=== PATIENT | female | born 1960 | race Caucasian/White ===

== ENCOUNTER 2016-12-16 01:17 | Inpatient (IN) ==
--- NOTE | 2016-12-16 01:37 | Emergency Department Note ---
Disposition Clinical Impression: NSTEMI (non-ST elevated myocardial infarction) Chest pain Qualifiers: Chest pain type: unspecified Qualified Code(s): R07.9 - Chest pain, unspecified Disposition: Admitted As Inpatient Condition: Good Time of Disposition: 03:33 Chest Pain HPI - General Chief Complaint: ED Chest Pain Stated Complaint: Chest Pain Time Seen by Provider: 12/16/16 01:24 Source: patient, EMS Mode of arrival: EMS Limitations: no limitations Vital Signs Reviewed: Yes Nursing Notes Reviewed: Yes - History of Present Illness HPI Narrative: 56-year-old female history of hypertension, diabetes, hyperlipidemia, pack per day smoker, with pacemaker presents to the ED via EMS for chest pain. States she woke up from sleep with severe midsternal chest pain 10 of 10 around 2330. She initially felt short of breath, nauseated and vomited once. Pain did not radiate. Denies any diaphoresis. Denies any recent illness, fever, cough. Reports family history of cardiac disease father age 56. Pain improves after EMS gave her 324 mg aspirin which was given prior to arrival. Patients currently asymptomatic and pain free. Denies any history of active cancer, blood clots, recent travel, surgery or hospitalization. Denies any history of this and the past. Reports a recent heart catheterization performed here at [facility] which was normal several years ago. 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 Mccall who will takes care for due to her pacemaker from bradycardia. Chest pain workup initiated. Pt complaint: chest pain Severity scale (1-10): 0 - Related Data Allergies Allergy/AdvReac Type Severity Reaction Status Date / Time sulfamethoxazole AdvReac See Verified 12/16/16 01:19 [From Bactrim] Comments trimethoprim [From Bactrim] AdvReac See Verified 12/16/16 01:19 Comments Chest Pain PMH - Past Medical History Medical history: Reports: cardiomyopathy, diabetes, hyperlipidemia, hypertension , renal disease Psychiatric history: Reports: anxiety, depression - Social History Smoking Status: Current every day smoker Alcohol use: Reports: none Drug use: Reports: none Physical Exam - General Limitations: no limitations General appearance: alert, anxious - Head Head exam: atraumatic, normocephalic, normal inspection - Eye Eye exam: Present: normal appearance, PERRL, EOMI - ENT ENT exam: normal exam, normal oropharynx, mucous membranes moist - Neck Neck exam: Present: normal inspection, full ROM, trachea midline - Chest Chest inspection: Present: normal inspection, symmetric chest wall rise. Absent : tenderness, rash - Respiratory Respiratory exam: Present: normal lung sounds bilaterally. Absent: respiratory distress, wheezes - Cardiovascular Cardiovascular exam: Present: regular rate, normal rhythm, normal heart sounds - Abdominal Exam Abdominal exam: Present: soft, Non-Tender, normal bowel sounds. Absent: tenderness, distention, guarding, rebound, rigidity - Extremities Exam Extremities exam: Present: normal inspection, full ROM, normal capillary refill. Absent: tenderness, pedal edema, calf tenderness - Back Exam Back exam: Present: normal inspection, full ROM. Absent: tenderness - Neurological Exam Neurological exam: Present: alert, oriented X3 - Psychiatric Psychiatric exam: Present: normal affect, normal mood - Skin Skin exam: Present: warm, dry, intact, normal color. Absent: rash Course - Reevaluation(s) Reevaluation #1: Patient's IV has blown multiple times. Was successful in placing IV in the right hand. Labs drawn and pending. Patient was placed supine and then raise back up in pain returned in midsternum, described as burning sensation. She reports a history of reflux but this is more intense. Will give her dose of G.I. cocktail as well as a nitro to relieve the symptoms. She will likely need admission for chest pain workup to rule out ACS. Repeat EKG ordered due to return of pain. Time: 03:07 Reevaluation #2: Critical lab 0.35 troponin. Patient denies any hemoptysis, hematuria, bloody stool or blacked tarry stool. Placed on low-dose heparin. Patient will be admitted for NSTEMI. She has stage III chronic kidney disease it appears that baseline 1.48. Mild leukocytosis. Chest x-ray does not reveal any pulmonary infiltrate to suggest pneumonia. Impression is chest pain and NSTEMI. Patient will be admitted to the hospital for further evaluation and workup. Patient is in agreement with this plan. Repeat EKG was performed 334 shows some improvement in the T wave morphology in the lateral leads I and aVL, no ST elevation or depression, no acute ischemic changes there may be some ischemia on the lateral leads with T wave flattening. No STEMI pattern. Appears sinus rhythm at 70 bpm, there does not appear to be any atrial pacer spikes. Intervals are within normal limits IL interval 187 QRS 112 QT QTC 400 421. Patients currently chest pain free. Time: 03:31 - Consultations Consultation #1: Spoke with on-call hospitalist nettie Nayak to admit for chest pain and NSTEMI. No further orders at this time Time: 03:42 Vital Signs Temperature 98.0 F 12/16/16 01:20 Pulse Rate 62 12/16/16 01:20 Respiratory Rate 18 12/16/16 01:20 Blood Pressure 135/66 12/16/16 01:20 O2 Sat by Pulse Oximetry 94 12/16/16 01:20 Temperature 98.0 F 12/16/16 01:20 Pulse Rate 81 12/16/16 03:34 Respiratory Rate 18 12/16/16 03:34 Blood Pressure 137/67 12/16/16 03:34 O2 Sat by Pulse Oximetry 96 12/16/16 03:34 Oxygen Delivery Oxygen Delivery Room Air Chest Pain - Medical Records Medical records reviewed: Yes I reviewed the patient's medical records. - Lab Data Lab results reviewed: Yes I reviewed the patient's lab results. Result diagrams: 12/16/16 02:52 12/16/16 02:52 Lab Results 12/16/16 12/16/16 12/16/16 Range/Units 02:52 02:52 02:52 WBC 12.9 H (4.3-11.1) K/mcL RBC 4.23 (3.82-4.97) M/mcL Hgb 11.8 (11.5-15.4) g/dL Hct 35.4 (35.3-44.9) % MCV 83.7 (83.0-100.0) fL MCH 27.9 L (28.0-33.3) pg MCHC 33.3 (31.6-35.5) g/dL RDW 13.2 (11.5-14.5) % Plt Count 262 (140-400) K/mcL MPV 9.3 L (9.4-12.4) fL Immature Gran % 0.9 (0-4) % Seg Neutrophils % 78.5 % Lymphocytes % 12.7 % Monocytes % 4.9 % Eosinophils % 2.6 % Basophils % 0.4 % Neutrophils # 10.2 H (1.6-8.9) K/mcL Lymphocytes # 1.6 (0.6-4.6) K/mcL Monocytes # 0.6 (0.0-1.3) K/mcL Eosinophils # 0.3 (0.0-0.6) K/mcL Basophils # 0.1 (0.0-0.2) K/mcL PT (9.4-12.1) Seconds INR APTT (26.0-36.0) Seconds Sodium 133 L (136-145) mEq/L Potassium 3.9 (3.5-4.5) mEq/L Chloride 100 (98-109) mEq/L Carbon Dioxide 24 (19-29) mEq/L BUN 18 (7-20) mg/dL Creatinine 1.48 H (0.57-1.11) mg/dL Est GFR ( Amer) 44 L (> 60) Est GFR (Non-Af Amer) 36 L (> 60) BUN/Creatinine Ratio 12 (6-26) Glucose 231 H (70-99) mg/dL Calculated Osmolality 285 (280-300) Calcium 9.2 (8.6-10.8) mg/dL Troponin I 0.35 H* (0-0.03) ng/mL 12/16/16 Range/Units 02:52 WBC (4.3-11.1) K/mcL RBC (3.82-4.97) M/mcL Hgb (11.5-15.4) g/dL Hct (35.3-44.9) % MCV (83.0-100.0) fL MCH (28.0-33.3) pg MCHC (31.6-35.5) g/dL RDW (11.5-14.5) % Plt Count (140-400) K/mcL MPV (9.4-12.4) fL Immature Gran % (0-4) % Seg Neutrophils % % Lymphocytes % % Monocytes % % Eosinophils % % Basophils % % Neutrophils # (1.6-8.9) K/mcL Lymphocytes # (0.6-4.6) K/mcL Monocytes # (0.0-1.3) K/mcL Eosinophils # (0.0-0.6) K/mcL Basophils # (0.0-0.2) K/mcL PT 12.0 (9.4-12.1) Seconds INR 1.1 APTT 27.8 (26.0-36.0) Seconds Sodium (136-145) mEq/L Potassium (3.5-4.5) mEq/L Chloride (98-109) mEq/L Carbon Dioxide (19-29) mEq/L BUN (7-20) mg/dL Creatinine (0.57-1.11) mg/dL Est GFR ( Amer) (> 60) Est GFR (Non-Af Amer) (> 60) BUN/Creatinine Ratio (6-26) Glucose (70-99) mg/dL Calculated Osmolality (280-300) Calcium (8.6-10.8) mg/dL Troponin I (0-0.03) ng/mL - Radiology Data Radiology results reviewed: Yes I reviewed the patient's radiology results. Chest X-Ray 12/16/16 01:34 IMPRESSION: Stable chest x-ray. No acute disease. D/ / Joseph Shi MD / Joseph Shi MD Interpreting Provider: Joseph Shi MD - EKG Data EKG attestation: Yes I reviewed and interpreted this EKG. EKG results narrative: EKG performed 125 shows atrial paced rhythm 62 bpm, prolonged IL interval 236, intraventricular conduction delay, no acute ST elevations or depression. Compared to old EKG performed 11/22/2014 which was prior to her pacemaker placement does not show any acute ischemic changes. Heart Score - Score History: Moderately Suspicious EKG: Non Specific repolarisation Disturbance Age: 45-65 Risk Factors: Equal/Greater than 3 risk factor or history of atherosclerotic disease Troponin: Less than normal limit HEART Score Total: 5 Critical Care Time Critical Care Time: Yes Total Critical Care Time: 45 Attestation: Critical care performed: Time is exclusive of separately billable procedures. Time includes: direct patient care, patient reassessment, coordination of patient care, interpretation of data (laboratory data, radiology data, and respiratory data), review of patient's medical records, medical consultation and documentation of patient care. Procedures included in critical care time: Procedures excluded from critical care time: Attestation Statement - Attestation Attestation: I, Luisito Jack MD, personally evaluated this patient and discussed their management with the resident physician. I reviewed the resident's note and agree with the documented findings, medical decision making, and plan of care. 56-year-old female presents to the emergency department by EMS with a complaint of severe burning of her substernal chest pain which awoke her from sleep about 11:30 PM this evening. Pain radiated straight through to the back. Some mild shortness of breath. Nausea. Diaphoresis. Patient has a pacemaker secondary to a rhythm problem but denies any known coronary artery disease. She does have a history of hypertension and hyperlipidemia. She is also diabetic and is a smoker. Patient received aspirin 324 mg per EMS with relief of her chest discomfort prior to arrival here. After arrival she had a brief episode of chest pain which resolved spontaneously. On examination patient is a well-developed obese female in no acute distress. She is alert and oriented 3. There is no cyanosis or diaphoresis. Chest is nontender to palpation. Breath sounds are clear and equal bilaterally. Heart regular rate and rhythm. Abdomen soft and nontender with normal bowel sounds. EKG shows some anterior ischemia with flattened T waves in lead 1, aVL, V5, and V6. No ST elevation. Chest x-ray negative. Labs reviewed. Troponin 0.35. Patient was placed on heparin infusion. The hospitalist, Dr. Curran, was consulted and accepted admission of the patient.
[2016-12-16 02:58] LABS: Basophils # 0.1 K/mcL (0.0-0.2); Basophils % 0.4 %; Eosinophils # 0.3 K/mcL (0.0-0.6); Eosinophils % 2.6 %; Hematocrit 35.4 % (35.3-44.9); Hemoglobin 11.8 g/dL (11.5-15.4); Immature Granulocytes % 0.9 % (0-4); Lymphocytes # 1.6 K/mcL (0.6-4.6); Lymphocytes % 12.7 %; Mean Corpuscular HGB Conc 33.3 g/dL (31.6-35.5); Mean Corpuscular Hemoglobin 27.9 pg (28.0-33.3); Mean Corpuscular Volume 83.7 fL (83.0-100.0); Mean Platelet Volume 9.3 fL (9.4-12.4); Monocytes # 0.6 K/mcL (0.0-1.3); Monocytes % 4.9 %; Neutrophils # 10.2 K/mcL (1.6-8.9); Platelet Count 262 K/mcL (140-400); Red Blood Count 4.23 M/mcL (3.82-4.97); Red Cell Distribution Width 13.2 % (11.5-14.5); Segmented Neutrophils % 78.5 %
[2016-12-16] MEDS ORDERED: GI Cocktail 40 ML EACH PO ONE (03:07)
[2016-12-16 03:13] LABS: Calcium 9.2 mg/dL (8.6-10.8); Potassium 3.9 mEq/L (3.5-4.5)
[2016-12-16] MEDS ORDERED: *HR* Heparin 5,000 UNIT/ML VIAL IVP PRN ×2 (03:29)
[2016-12-16] MEDS ORDERED: *HR* Heparin 5,000 UNIT/ML VIAL IVP ONE (03:29)
[2016-12-16] MEDS: Nitroglycerin 0.4 MG TAB.SUBL SL PRN ×2 (03:38→14:32)
[2016-12-16 03:48] LABS: INR 1.1
[2016-12-16 03:50] LABS: Activated Partial Thrombo Time 27.8 Seconds (26.0-36.0)
[2016-12-16] MEDS: Heparin 25,000 UNIT/500 ML D5W 25,000 UNIT/500 ML MLS IVC SCH ×2 (04:10→22:44)
[2016-12-16] MEDS ORDERED: Naloxone 0.4 MG/ML INJ IVP PRN (04:20)
[2016-12-16] MEDS ORDERED: Acetaminophen 325 MG TABLET PO PRN (04:20)
[2016-12-16] MEDS ORDERED: Ondansetron 4 MG/2 ML VIAL IVP PRN (04:20)
[2016-12-16] MEDS ORDERED: *HR* Morphine 2 MG/ML SYRINGE IVP PRN (04:20)
[2016-12-16] MEDS ORDERED: Aspirin 325 MG TABLET PO ONE (04:25)
[2016-12-16] MEDS ORDERED: 0.9 % Sodium Chloride 1,000 ML IVC SCH (04:30)
[2016-12-16 04:49] LABS: Hemoglobin A1C 7.4 %
[2016-12-16 04:51] LABS: Magnesium 1.3 mg/dL (1.6-2.6)
[2016-12-16] MEDS ORDERED: Dextrose Gel 15 GM PO PRN ×2 (05:08)
[2016-12-16] MEDS ORDERED: D5% in Water 1,000 ML IVC PRN (05:08)
[2016-12-16] MEDS ORDERED: *HR* Dextrose 50 % in Water (Syg) 50 ML SYRINGE IVP PRN (05:08)
[2016-12-16 05:11] LABS: Thyroid Stimulating Hormone 1.888 mcIU/mL (0.350-4.840)
[2016-12-16] MEDS: Famotidine 20 MG/2 ML VIAL IVP SCH ×2 (05:21→19:07)
[2016-12-16] MEDS: 0.9 % Sodium Chloride 1,000 ML IVC SCH ×2 (05:21→23:54)
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
--- NOTE | 2016-12-16 08:44 | Cardiology Consult Note ---
Date of Encounter: 12/16/16 Time of Encounter: 08:00 Assessment and Plan (1) Elevated troponin Current Visit: Yes Status: Acute Per cardiology: -Troponin 0.35. -Limited echo pending. -ECG with sinus rhythm with bundle branch block, BBB noted on previous ECG. -Admitted with chest burning that was relieved with GI cocktail. -Echo 02/2016 with LVEF 60-65%, mild diastolic dysfunction, no significant valvular dysfunction, all saenz with normal motion. -C 2010 with luminal irregularities in LAD, luminal irregularities in circumflex, luminal irregularities in RCA. -On heparin drip, asa, statin, beta emiliana. -Will trend troponins -Will obtain limited echocardiogram. -Will continue to monitor. (2) Chest pain Current Visit: Yes Status: Acute Per cardiology: -Admitted with midternal chest "buring." -Pain relieved by GI cocktail. -Denies pain since given cocktail. -Will continue to monitor. Qualifiers: Chest pain type: other chest pain Qualified Code(s): R07.89 - Other chest pain; R07.8 - Other chest pain (3) Hyperlipidemia Current Visit: Yes Status: Chronic Per cardiology: -KNown hyperlipidemia. -On simvastatin at home. -Patient refused to take atorvastatin, due to family having fci side effects from medication. Patient agreeable to rosuvastatin. -Triglycerides 311, cholesterol 159, LDL 65, HDL 32. -Will change statin to rosuvastatin. Qualifiers: Hyperlipidemia type: unspecified Qualified Code(s): E78.5 - Hyperlipidemia , unspecified (4) H/O cardiac pacemaker Current Visit: Yes Per cardiology: -Known pacemaker for sick sinus syndrome. -Pacemaker placed 2014. -Last device check 05/2016 with normal function, one ventricular high rate noted that lasted for 1 second. -Pateint scheduled for deivce check on Saturday. -Will re-schedule device check, message sent to office. (5) CKD (chronic kidney disease), stage III Current Visit: Yes Status: Chronic Per cardiology: -Known CKD stage III. -Follows with nephrology. -Creatinine 1.48, about baseline. GFR 36. -Can consider nephrology consult. Discussion w patient/family: The assessment and plan as outlined above was discussed with the patient and/or family members who expressed understanding and agreement. All questions were answered. Thank you for involving us in the care of your patient. Please call with any questions. Discussed and reviewed with . History of Present Illness Consult date: 12/16/16 Requesting physician: Nick Abdi Consult reason: NSTEMI Chief complaint: chest pain History of present illness: Ms. Kelley is a 56 year old female with a relevant past medical history of DM, hyperlipidemia, HTN, GERD, CKD stage III, neuropathy, sick sinus syndrome with permanent pacemaker placement. Patient states she was woken out of sleep by chest pain. Patient states it was midsternal "burning" pain. Patient denies radiation of pain. Patient states pain was not aggravated by excertion. Patient states pain was lessened by ASA given in squad and was relieved by GI cocktail given in ER. Patient states she has GERD, however this pain was different from her usual GERD symptoms. Patient reports associated nausea and she admits to vomiting x1. Patient denies current chest pain. Denies shortness of breath or increased fatigue. Past Med Surg Social Fam HX - Past Medical History Attestation: Yes The following information was validated with the patient. Source: patient, old records reviewed, obtained from family Medical history: diabetes, hyperlipidemia, hypertension, renal disease, other ( Status post pacemaker) Psychiatric history: anxiety, depression - Past Surgical History Surgical History: cholecystectomy, hysterectomy, knee replacement, pacemaker/ AICD (for complete heart block) - Social History Smoking Status: Current every day smoker Smokeless Tobacco Status: No Alcohol use: none Drug use: none - Family History Father Hx Family Cardiac Disorders: Yes (Coronary artery disease) Hx Family Cancer: Yes Mother Hx Family Cardiac Disorders: Yes Hx Family Cancer: Yes Medications and Allergies ALPRAZolam [Xanax 0.5 MG Tablet] 0.5 mg PO BID PRN 12/16/16 [History] Cholecalciferol (D-3) [Vitamin D] 5,000 unit PO DAILY 12/16/16 [History] HYDROcodone/Acet 7.5/325 mg [[place] 7.5-325 mg] 1 tab PO TID 12/16/16 [History] Insulin DETEMIR [Levemir] 20 unit SQ BID 12/16/16 [History] Insulin LISPRO [HumaLOG] 0 units SQ TIDWM 12/16/16 [History] Insulin LISPRO [HumaLOG] 20 units SQ TIDWM 12/16/16 [History] Liraglutide [Victoza 2-Abhay] 1.2 mg SQ DAILY 12/16/16 [History] Lisinopril [Zestril] 5 mg PO DAILY 12/16/16 [History] NIFEdipine XL (24 HR) [Procardia XL] 30 mg PO DAILY 12/16/16 [History] Simvastatin [Zocor] 40 mg PO HS 12/16/16 [History] hydroCHLOROthiazide [Hydrochlorothiazide] 25 mg PO DAILY 12/16/16 [History] Allergies sulfamethoxazole [From Bactrim] Adverse Reaction (Verified 12/16/16 01:19) See Comments trimethoprim [From Bactrim] Adverse Reaction (Verified 12/16/16 01:19) See Comments All Systems Review: A 10-system review of systems was performed and is negative for pertinent findings except as documented above in the HPI. - Cardiovascular Cardiovascular: as per HPI, chest pain at rest - Gastrointestinal Gastrointestinal: nausea, other (Vomiting) Physical Examination Vital Signs, Last 4 Hours Temp Pulse Resp BP Pulse Ox 12/16/16 08:09 98.1 F 90 17 145/74 96 12/16/16 05:16 97.7 F 77 16 117/58 96 General: Conversant, No Apparent Distress HEENT: Atraumatic, Normocephaly, Mucus Membranes Moist Neck: No JVD, Normal carotid pulses Cardiac: Reg Rate and Rhythm, Normal S1 and S2, No Murmur Lungs: Normal Breath Sounds, No Wheeze, Rales, Rhonchi Neuro: Alert and responsive, No focal deficits noted Abdomen: Soft, Non-Tender Skin: No rashes noted on visualized skin Musculoskeletal: No Chest Wall Tenderness Extremities: No Clubbing, No Cyanosis, No Edema, Normal Pulses Results 12/16/16 02:52 12/16/16 02:52 Impressions Chest X-Ray 12/16/16 01:34 IMPRESSION: Stable chest x-ray. No acute disease. D/ / Joseph Shi MD / Joseph Shi MD Interpreting Provider: Joseph Shi MD Active Medications Acetaminophen (Tylenol) 650 mg PO Q6HR PRN PRN Reason: Mild Pain (1-3) Stop: 01/22/18 04:21 Alprazolam (Xanax) 0.5 mg PO BID PRN; Protocol PRN Reason: Anxiety Stop: 06/17/17 06:12 Aspirin (Aspirin) 81 mg PO DAILY [facility] Stop: 06/17/17 09:01 Dextrose/Water (Dextrose 50% (Syg)) 25 ml IVP AD PRN PRN Reason: Hypoglycemia Stop: 06/17/17 05:09 Famotidine (Pepcid) 20 mg IVP Q12HR JACK Stop: 06/17/17 06:01 Last Admin: 12/16/16 05:21 Dose: 20 mg Glucagon (Glucagen) 1 mg IM ONCE PRN PRN Reason: Hypoglycemia Stop: 06/17/17 05:09 Glucose (Gluctose) 15 gm PO ONCE PRN PRN Reason: Hypoglycemia Stop: 06/17/17 05:09 Glucose (Gluctose) 30 gm PO ONCE PRN PRN Reason: Hypoglycemia Stop: 06/17/17 05:09 Heparin Sodium (Porcine) (Heparin) 4,000 unit IVP Q6HR PRN PRN Reason: SEE COMMENTS Stop: 06/17/17 03:30 Heparin Sodium (Porcine) (Heparin) 2,000 unit IVP Q6H PRN PRN Reason: SEE COMMENTS Stop: 06/17/17 03:30 Hydrochlorothiazide (Hydrochlorothiazide) 25 mg PO DAILY JACK PRN Reason: Protocol Stop: 06/17/17 09:01 Heparin Sodium/Dextrose (Heparin 25,000 Unit/500 Ml D5w) 25,000 unit in 500 mls @ 27.107 mls/hr IVC .[id number] JACK; 12 UNIT/KG/HR PRN Reason: Protocol Stop: 06/17/17 03:31 Last Admin: 12/16/16 04:10 Dose: 12 unit/kg/hr, 27.107 mls/hr Sodium Chloride (0.9 % Sodium Chloride) 1,000 mls @ 50 mls/hr IVC .Q20H JACK Stop: 06/17/17 04:31 Last Admin: 12/16/16 05:21 Dose: 50 mls/hr Dextrose (Dextrose 5%) 1,000 mls @ 100 mls/hr IVC .Q10H PRN PRN Reason: HYPOGLYCEMIA Stop: 06/17/17 05:09 Insulin Detemir (Levemir) 20 unit SQ BID [facility] Stop: 06/17/17 09:01 Insulin Human Lispro (Humalog) 0 units SQ TIDAC [facility] PRN Reason: Protocol Stop: 06/17/17 07:31 Insulin Human Lispro (Humalog) 0 units SQ HS [facility] PRN Reason: Protocol Stop: 06/17/17 21:01 Lisinopril (Zestril) 5 mg PO DAILY [facility] PRN Reason: Protocol Stop: 06/17/17 09:01 Metoprolol Tartrate (Lopressor) 25 mg PO BID [facility] Stop: 06/17/17 09:01 Morphine Sulfate (Morphine Sulfate) 2 mg IVP Q4HR PRN PRN Reason: Severe Pain (7-10) Stop: 06/17/17 04:21 Naloxone HCl (Narcan) 0.4 mg IVP Q2MIN PRN PRN Reason: Opioid Reversal Stop: 06/17/17 04:21 Nicotine (Nicoderm) 21 mg TD DAILY [facility] PRN Reason: Protocol Stop: 06/17/17 09:01 Nifedipine (Procardia Xl) 30 mg PO DAILY [facility] PRN Reason: Protocol Stop: 06/17/17 09:01 Nitroglycerin (Nitroglycerin) 0.4 mg SL Q5MIN PRN PRN Reason: Chest Pain Stop: 06/17/17 03:07 Last Admin: 12/16/16 03:38 Dose: 0.4 mg Ondansetron HCl (Zofran) 4 mg IVP Q8HR PRN PRN Reason: Nausea And Vomiting Stop: 06/17/17 04:21 Rosuvastatin Calcium (Crestor) 40 mg PO HS ONE Stop: 12/16/16 21:01 Vitamin D (Vitamin D) 1,000 unit PO DAILY [facility] Stop: 06/17/17 09:01 Laboratory Tests 12/13/15 08/02/16 12/16/16 14:36 10:20 02:52 WBC 12.9 H Hgb 11.8 Creatinine 1.46 H 1.38 H Hemoglobin A1c Magnesium Troponin I Triglycerides Cholesterol LDL Cholesterol, Calc HDL Cholesterol 12/16/16 12/16/16 12/16/16 02:52 02:52 02:52 WBC Hgb Creatinine 1.48 H Hemoglobin A1c 7.4 H Magnesium 1.3 L Troponin I 0.35 H* Triglycerides 311 H Cholesterol 159 LDL Cholesterol, Calc 65 HDL Cholesterol 32 L - Imaging and Cardiology Chest Xray: report reviewed Echo: pending, report reviewed Cardiac cath: report reviewed - EKG Interpretation EKG results cardiology: personally reviewed (ECG with sinus rhythm, HR 70. Bundle branch block noted.), other (Telemetry reviewed with average HR 77, sinus rhythm. PVCs and PACs noted.) Consult Discharge Plan - Plan Referrals: Olena Salinas, [employer] [Primary Care Provider] -
[2016-12-16] MEDS ORDERED: NON-FORMULARY MEDICATION 1 EACH EACH (Insulin Detemir 20 UNIT) SQ SCH (09:00)
[2016-12-16] MEDS ORDERED: Magnesium Sulfate 2 GM in D5% in Water 100 ML IVPB ONE (09:07)
--- NOTE | 2016-12-16 09:33 | Internal Med Progress Note ---
<Jose Angulo - Last Filed: 12/16/16 09:31> Date of Encounter: 12/16/16 Time of Encounter: 08:30 - Assessment and plan (1) NSTEMI (non-ST elevated myocardial infarction) Current Visit: Yes Status: Acute Assessment and plan: Non-ST elevation [place] - causing chest pain - most factors include tobacco abuse, strong family history, diabetes and HTN -Patient does have a family history of heart disease; father and mother had MIs. -Continue Aspirin, Statin and Metoprolol --IV Heparin as per protocol -Troponin - 0.35, cycle troponins -ECHO pending -BN peptide < 10 -CXR: no acute process (2) CKD (chronic kidney disease), stage III Current Visit: Yes Status: Chronic Assessment and plan: Chronic kidney disease stage III likely due to HTN and DM - stable, creatinine and GFR seemed to be at baseline Continue IV fluids Creatinine this morning was 1.48. (3) Essential hypertension Current Visit: Yes Status: Chronic Assessment and plan: Essential HTN, controlled, monitor -Continue metoprolol. -Patient's blood pressure this morning was 117/58. (4) Hyperlipidemia Current Visit: Yes Status: Chronic Assessment and plan: Continue statin Qualifiers: Hyperlipidemia type: unspecified Qualified Code(s): E78.5 - Hyperlipidemia , unspecified (5) Type 2 diabetes mellitus Current Visit: Yes Status: Chronic Assessment and plan: Diabetes mellitus type 2, [id number], hyperglycemia -Continue insulin sliding scale, glucose checks -HbA1c - 7.4 -Patient's glucose this morning was 231. Qualifiers: Diabetes mellitus complication status: without complication Diabetes mellitus jail insulin use: without technician terminal and repeater use Qualified Code(s): E11.9 - Type 2 diabetes mellitus without complications - Subjective Interval history: She was not examined at bedside this morning. Patient denies having any chest pain at the moment. She states that her condition has improved since she first arrived in the hospital. She admits that when she first came in, she had some shortness of breath, nausea, and one episode of vomiting. Since then, she has not experienced any of these symptoms. She does state that she has a history of having some chest pain in the past, likely related to stress. She was seen by cardiology this morning, and they plan on performing an echocardiogram on her. Patient denies having sweating, fever, chills, or shortness of breath. Patient has no other complaints at this time. - Constitutional Vitals: Temp Pulse Resp BP Pulse Ox 98.1 F 90 17 145/74 96 12/16/16 08:09 12/16/16 08:09 12/16/16 08:09 12/16/16 08:09 12/16/16 08:09 General appearance: Present: A&O X 3, pleasant, no acute distress, obese, answers questions appropriately - Head Head exam: Present: atraumatic, normocephalic - Neck Neck exam general surgery: Present: supple, trachea midline. Absent: lymphadenopathy - Respiratory Respiratory exam: Present: CTAB. Absent: accessory muscle use, rales, rhonchi, wheezes - Cardiovascular Cardiovascular exam: Present: RRR, +S1, +S2. Absent: diastolic murmur, gallop, rubs, systolic murmur - Extremities Exam Extremities exam: Present: warm, radial pulses palpable and symetrical - Skin Skin exam: Present: dry, intact Internal Medicine: Result - Labs CBC & Chem 7: 12/16/16 02:52 12/16/16 02:52 - ABG Interpretation ABG results: PT/INR, D-dimer PT 12.0 Seconds (9.4-12.1) 12/16/16 02:52 Consult Discharge Plan - Plan Referrals: Olena Salinas, [employer] [Primary Care Provider] - <Erik Azar - Last Filed: 12/16/16 10:32> Date of Encounter: 12/16/16 - Constitutional Vitals: Temp Pulse Resp BP Pulse Ox 98.1 F 90 17 145/74 96 12/16/16 08:09 12/16/16 08:09 12/16/16 08:09 12/16/16 08:09 12/16/16 08:09 Internal Medicine: Result - Labs CBC & Chem 7: 12/16/16 02:52 12/16/16 02:52 Labs: Cardiac Enzymes 12/16/16 Range/Units 08:58 Troponin I 3.63 H* (0-0.03) ng/mL - ABG Interpretation ABG results: PT/INR, D-dimer PT 12.0 Seconds (9.4-12.1) 12/16/16 02:52 - Attending Attestation NSTEMI, continue ASA metoprolol, Lipitor, nitro morphine prh heparin drip [facility] in am I examined this patient and my medical decision-making was reviewed with the Resident Physician. I agree with the documented findings, disposition and treatment plan as described except to the extent set forth below.
[2016-12-16] MEDS: hydroCHLOROthiazide 25 MG TABLET PO SCH (09:36)
[2016-12-16] MEDS: NIFEdipine XL (24 HR) 30 MG TAB.ER.24 PO SCH (09:36)
[2016-12-16] MEDS: Aspirin 81 MG TAB.CHEW PO SCH (09:36)
[2016-12-16] MEDS: Nicotine 21 MG PATCH.TD24 TD SCH (09:37)
[2016-12-16] MEDS: Cholecalciferol (D-3) 1,000 UNIT TABLET PO SCH (09:37)
[2016-12-16] MEDS: Insulin DETEMIR 100 UNIT/ML X5UNITS SQ SCH ×2 (09:42→22:42)
[2016-12-16] MEDS: Insulin LISPRO 300 UNITS/3 ML VIAL SQ SCH ×4 (09:44→22:47)
[2016-12-16] MEDS ORDERED: *HR* Ticagrelor 90 MG TABLET PO ONE (11:10)
[2016-12-16 16:11] LABS: Bilirubin,Urine Negative (Negative); Blood,Urine Negative (Negative); Clarity,Urine Clear (Clear); Color,Urine Yellow (Yellow); Glucose,Urine (UA) Normal (Normal); Ketones,Urine Negative (Negative); Leukocyte Esterase,Urine Negative (Negative); Nitrite,Urine Negative (Negative); Protein,Urine Negative (Neg-Trace); Specific Gravity,Urine 1.008 (1.010-1.025); Urobilinogen,Urine Normal (Normal)
[2016-12-16] MEDS ORDERED: *HR* HYDROcodone/Acet 7.5/325 mg TABLET PO PRN (16:51)
[2016-12-16] MEDS: *HR* Ticagrelor 90 MG TABLET PO SCH (22:42)
[2016-12-16] MEDS: ALPRAZolam 0.5 MG TABLET PO PRN (22:42)
[2016-12-17 04:38] LABS: Basophils # 0.1 K/mcL (0.0-0.2); Basophils % 0.5 %; Eosinophils # 0.4 K/mcL (0.0-0.6); Eosinophils % 4.1 %; Hematocrit 34.4 % (35.3-44.9); Hemoglobin 11.7 g/dL (11.5-15.4); Immature Granulocytes % 0.4 % (0-4); Lymphocytes % 37.9 %; Mean Corpuscular Hemoglobin 28.9 pg (28.0-33.3); Mean Corpuscular Volume 84.9 fL (83.0-100.0); Mean Platelet Volume 10.1 fL (9.4-12.4); Monocytes # 0.6 K/mcL (0.0-1.3); Neutrophils # 5.3 K/mcL (1.6-8.9); Platelet Count 254 K/mcL (140-400); Red Blood Count 4.05 M/mcL (3.82-4.97); Red Cell Distribution Width 13.2 % (11.5-14.5); Segmented Neutrophils % 51.1 %
[2016-12-17 04:42] LABS: INR 1.1; Prothrombin Time 11.9 Seconds (9.4-12.1)
[2016-12-17 04:54] LABS: Albumin 3.3 g/dL (3.5-5.0); Albumin/Globulin Ratio 0.9 (1.1-2.2); Bilirubin,Total 0.3 mg/dL (0.2-1.2); Calcium 9.3 mg/dL (8.6-10.8); Globulin 3.8 g/dL (2.4-3.5); Potassium 3.9 mEq/L (3.5-4.5); Total Protein 7.1 g/dL (6.0-8.3)
[2016-12-17] MEDS ORDERED: Famotidine 20 MG/2 ML VIAL IVP SCH (06:30)
[2016-12-17] MEDS: Insulin LISPRO 300 UNITS/3 ML VIAL SQ SCH ×4 (08:40→20:54)
[2016-12-17] MEDS: Insulin DETEMIR 100 UNIT/ML X5UNITS SQ SCH ×2 (09:56→22:34)
[2016-12-17] MEDS: Nicotine 21 MG PATCH.TD24 TD SCH (09:56)
[2016-12-17] MEDS: ALPRAZolam 0.5 MG TABLET PO PRN (09:56)
[2016-12-17] MEDS: NIFEdipine XL (24 HR) 30 MG TAB.ER.24 PO SCH (09:57)
[2016-12-17] MEDS: Cholecalciferol (D-3) 1,000 UNIT TABLET PO SCH (09:57)
[2016-12-17] MEDS: Aspirin 81 MG TAB.CHEW PO SCH (09:57)
[2016-12-17] MEDS: hydroCHLOROthiazide 25 MG TABLET PO SCH (09:58)
[2016-12-17] MEDS: *HR* HYDROcodone/Acet 7.5/325 mg TABLET PO PRN ×2 (10:06→18:52)
[2016-12-17] MEDS: *HR* Ticagrelor 90 MG TABLET PO SCH ×2 (10:16→20:54)
[2016-12-17] MEDS ORDERED: *HR* FentaNYL (PF) 100 MCG/2 ML VIAL ONE (13:45)
[2016-12-17] MEDS ORDERED: *HR* Midazolam HCl 2 MG/2 ML VIAL ONE (13:45)
[2016-12-17] MEDS ORDERED: Verapamil 5 MG/2 ML VIAL ONE (13:45)
[2016-12-17] MEDS ORDERED: Heparin 1,000 UNITS/500 mL NS 500 ML ONE (13:46)
[2016-12-17] MEDS ORDERED: 0.9 % Sodium Chloride 2,000 ML ONE (13:46)
[2016-12-17] MEDS ORDERED: *HR* Heparin 10,000 UNIT/10 ML VIAL ONE (13:46)
[2016-12-17] MEDS ORDERED: Nitroglycerin 1,000 MCG/10 ML VIAL IV ONE (13:46)
--- NOTE | 2016-12-17 13:48 | Pre-Sedation Evaluation ---
Pre-sedation evaluation - Pre-sedation checklist Date of procedure: 12/17/16 Procedure: [facility] Recent Vitals: Last Vital Signs Temp 97.6 F 12/17/16 10:50 Pulse 69 12/17/16 10:50 Resp 16 12/17/16 10:50 BP 130/78 12/17/16 10:50 Pulse Ox 97 12/17/16 10:50 H&P (including ROS) documented in medical record: Yes Previous reaction to sedatives/anesthetics: No Dietary Status: NPO after Midnight Airway Assessment: Patient can open mouth completely, TMJ function normal ASA Classification *see protocol: CLASS II-Mild systemic disease Plan of Care: Pt appropriate candidate for procedure/moderate/conscious sedation , Risks/benefits of procedure/sedation discussed w/ patient/family
--- NOTE | 2016-12-17 13:59 | Electrocardiograph Report ---
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
--- NOTE | 2016-12-17 14:00 | Event Note ---
Date of Encounter: 12/17/16 Time of Encounter: 08:00 - Cardiology Event Note Pateint with NSTEMI, peak troponin 3.63, plan for LHC. Creatinine today 1.7, baseline 1.3-1.4. RIsks versus benefits of LHC explained to patient. Patient states understanding and agrees with LHC. Discussed with regarding slightly more elevated creatinine. Repeat creatinine checked at 1200 and noted to be 1.62. aware and states ok to proceed with LHC. Further recommendations pending [facility].
--- NOTE | 2016-12-17 14:31 | Electrocardiograph Report ---
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
--- NOTE | 2016-12-17 14:39 | Discharge Summary ---
Date of Encounter: 12/17/16 Time of Encounter: 08:45 - Discharge Diagnosis (1) NSTEMI (non-ST elevated myocardial infarction) Priority: Primary Status: Acute Comments: Non-ST elevation [place] - causing chest pain - most factors include tobacco abuse, strong family history, diabetes and HTN -Patient does have a family history of heart disease; father and mother had MIs. -Continue Aspirin, Statin and Metoprolol -IV Heparin as per protocol -Troponin - 0.35, cycle troponins -ECHO pending -BN peptide < 10 -CXR: no acute process -LHC performed this morning. (2) CKD (chronic kidney disease), stage III Priority: Secondary Status: Chronic Comments: Chronic kidney disease stage III likely due to HTN and DM - stable, creatinine and GFR seemed to be at baseline Continue IV fluids Creatinine this morning was 1.70. (3) Essential hypertension Priority: Secondary Status: Chronic Comments: Essential HTN, controlled, monitor -Continue metoprolol. -Patient's blood pressure this morning was 128/75. (4) Hyperlipidemia Priority: Secondary Status: Chronic Comments: Continue statin Qualifiers: Hyperlipidemia type: unspecified Qualified Code(s): E78.5 - Hyperlipidemia , unspecified (5) Type 2 diabetes mellitus Priority: Secondary Status: Chronic Comments: Diabetes mellitus type 2, [id number]-rrabpjrbm, hyperglycemia -Continue insulin sliding scale, glucose checks -HbA1c - 7.4 -Patient's glucose this morning was 254. Qualifiers: Diabetes mellitus complication status: without complication Diabetes mellitus fci insulin use: without buttermilk drier operator use Qualified Code(s): E11.9 - Type 2 diabetes mellitus without complications - Discharge Medications Home Medications: ALPRAZolam [Xanax 0.5 MG Tablet] 0.5 mg PO BID PRN 12/16/16 [History] Aspirin [Lo-Dose Aspirin EC] 81 mg PO DAILY 12/16/16 [History] Cholecalciferol (D-3) [Vitamin D] 5,000 unit PO DAILY 12/16/16 [History] HYDROcodone/Acet 7.5/325 mg [[place] 7.5-325 mg] 1 tab PO TID PRN 12/16/16 [ History] Insulin DETEMIR [Levemir] 20 unit SQ BID 12/16/16 [History] Insulin LISPRO [HumaLOG] 20 units SQ TIDWM MDD PLUS SLIDING SCALE 12/16/16 [ History] Liraglutide [Victoza 2-Abhay] 1.2 mg SQ DAILY 12/16/16 [History] Lisinopril [Zestril] 5 mg PO DAILY 12/16/16 [History] NIFEdipine XL (24 HR) [Procardia XL] 30 mg PO DAILY 12/16/16 [History] Omeprazole Magnesium [Prilosec Otc] 20 mg PO DAILY 12/16/16 [History] Simvastatin [Zocor] 40 mg PO HS 12/16/16 [History] Tramadol HCl [Ultram] 100 mg PO TID PRN 12/16/16 [History] hydroCHLOROthiazide [Hydrochlorothiazide] 25 mg PO DAILY 12/16/16 [History] Allergies/Adverse Reactions: Allergies sulfamethoxazole [From Bactrim] Adverse Reaction (Verified 12/16/16 01:19) See Comments trimethoprim [From Bactrim] Adverse Reaction (Verified 12/16/16 01:19) See Comments Procedures/tests Complete & Pending: Procedures Performed prior 72 hours Category Date Time Status Left Heart Cath [CL Cardiac Catheterization] [CL] Assessment Director 12/17/16 13:39 Ordered Routine Date of admission: 12/16/16 04:20 Primary care physician: Olena Salinas CNP Consults: 12/16/16 04:23 Consult to Cardiology [CONS] Routine Comment: Consulting Provider: Cardiology Karen Reason for Consult: NSTEMI Call Completed: No Discharging clinician: Jose Angulo Anticipated date of discharge: 12/17/16 - Patient Status Disposition: Home, Self-Care Condition: Good Overall status at discharge: patient is progressing back to baseline - Discharge Instructions Follow Up With: Olena Salinas CNP [Primary Care Provider] - 12/24/16 11:00 am (web request 12/17/16) - Diet and Activity Activity: increase activity as tolerated Diet: advance to your usual diet Hospital course: Ms. Kelley is a 56 year old female with a past medical history of CKD stage III, hypertension, hyperlipidemia, diabetes, anxiety and status post pacemaker. Presented to ED with chest pain. A few hours prior to arrival, patient states she experienced severe substernal and left-sided chest pain that woke her up from sleep. She describes it as chest tightness which was sharp and almost constant. Pain was radiating to her back between her shoulder blades. Rated the pain 7 out of 10. No aggravating factors. Improved with nitro. She also complained of shortness of breath, headache, dizziness, nausea and 1 episode of vomiting. Also complained of intermittent palpitations. Denies abdominal pain or fever or diarrhea. No other associated symptoms. Patient has a strong family history of coronary artery disease. Her mother and father have had MIs and required CABG. Risk factors also include hypertension, diabetes, hyperlipidemia and tobacco abuse. Patient smokes about a pack and a half of cigarettes daily, and has smoked for almost 40 years. Patient admitted for NSTEMI. Initial evaluation in the ED revealed elevated troponin and EKG showed atrial fibrillation rhythm with no acute ST-T changes. Patient had been given 325 mg of aspirin. IV heparin was also given. Patient was also placed on IV morphine and sublingual nitoglycerin. After her initial admission, patient did not have anymore chest pain. Patient's troponin went from 0.35-3.63. When she was examined and the following day, patient said that she felt well. Cardiology was consulted, and recommended a left-sided heart catheterization. Her catheter was performed on 12/17/16. Patient remained stable while in the hospital. - Time Spent with Patient Total time spent providing and/or coordinating discharge services: Greater than 30 minutes (44 minutes) - Constitutional Vitals: Temp Pulse Resp BP Pulse Ox 97.6 F 69 16 130/78 97 12/17/16 10:50 12/17/16 10:50 12/17/16 10:50 12/17/16 10:50 12/17/16 10:50 General appearance: Present: A&O X 3, pleasant, no acute distress, obese, answers questions appropriately - Head Head exam: Present: atraumatic, normocephalic - Neck Neck exam general surgery: Present: supple, trachea midline. Absent: lymphadenopathy - Respiratory Respiratory exam: Present: CTAB. Absent: accessory muscle use, rales, rhonchi, wheezes - Cardiovascular Cardiovascular exam: Present: RRR, +S1, +S2. Absent: diastolic murmur, gallop, rubs, systolic murmur - Extremities Exam Extremities exam: Present: warm, radial pulses palpable and symetrical. Absent : calf tenderness, cyanotic, pedal edema - Skin Skin exam: Present: dry, intact
[2016-12-17] MEDS ORDERED: Tirofiban 12.5 MG/250ML 12.5 MG/250 ML BAG ONE (14:48)
[2016-12-17] MEDS ORDERED: *HR* Ticagrelor 90 MG TABLET ONE (15:27)
--- NOTE | 2016-12-17 15:27 | Internal Med Progress Note ---
<Jose Angulo - Last Filed: 12/17/16 15:54> Date of Encounter: 12/17/16 Time of Encounter: 08:45 - Assessment and plan (1) NSTEMI (non-ST elevated myocardial infarction) Current Visit: Yes Status: Acute Assessment and plan: Non-ST elevation RI - causing chest pain - most factors include tobacco abuse, strong family history, diabetes and HTN -Patient does have a family history of heart disease; father and mother had MIs. -Continue Aspirin, Statin and Metoprolol -IV Heparin as per protocol -Troponin - 0.35, cycle troponins -ECHO pending -BN peptide < 10 -CXR: no acute process -LHC performed this afternoon. Several drug eluting stents placed. Patient will stay overnight. (2) CKD (chronic kidney disease), stage III Current Visit: Yes Status: Chronic Assessment and plan: Chronic kidney disease stage III likely due to HTN and DM - stable, creatinine and GFR seemed to be at baseline Continue IV fluids Creatinine this morning was 1.70. (3) Essential hypertension Current Visit: Yes Status: Chronic Assessment and plan: Essential HTN, controlled, monitor -Continue metoprolol. -Patient's blood pressure this morning was 128/75. (4) Hyperlipidemia Current Visit: Yes Status: Chronic Qualifiers: Hyperlipidemia type: unspecified Qualified Code(s): E78.5 - Hyperlipidemia , unspecified (5) Type 2 diabetes mellitus Current Visit: Yes Status: Chronic Assessment and plan: Diabetes mellitus type 2, pln-vtedsyt-tvrbxgwck, hyperglycemia -Continue insulin sliding scale, glucose checks -HbA1c - 7.4 -Patient's glucose this morning was 168. Qualifiers: Diabetes mellitus complication status: without complication Diabetes mellitus long term care phlebotomist insulin use: without usp use Qualified Code(s): E11.9 - Type 2 diabetes mellitus without complications - Subjective Interval history: She was not examined at bedside this morning. Patient denies having any chest pain at the moment. She states that her condition has improved since she first arrived in the hospital. She admits that when she first came in, she had some shortness of breath, nausea, and one episode of vomiting. Since then, she has not experienced any of these symptoms. She does state that she has a history of having some chest pain in the past, likely related to stress. Catheterization was performed. Several drug-eluting stents were placed. Patient will stay for one more night in the hospital. Patient denies having sweating, fever, chills, or shortness of breath. - Constitutional Vitals: Temp Pulse Resp BP Pulse Ox 97.6 F 69 16 130/78 97 12/17/16 10:50 12/17/16 10:50 12/17/16 10:50 12/17/16 10:50 12/17/16 10:50 General appearance: Present: A&O X 3, pleasant, no acute distress, obese, answers questions appropriately - Head Head exam: Present: atraumatic, normocephalic - Neck Neck exam general surgery: Present: supple, trachea midline. Absent: lymphadenopathy - Respiratory Respiratory exam: Present: CTAB. Absent: accessory muscle use, rales, rhonchi, wheezes - Cardiovascular Cardiovascular exam: Present: RRR, +S1, +S2. Absent: diastolic murmur, gallop, rubs, systolic murmur - Extremities Exam Extremities exam: Present: warm, radial pulses palpable and symetrical. Absent : calf tenderness, cyanotic, pedal edema - Skin Skin exam: Present: dry, intact Internal Medicine: Result - Labs CBC & Chem 7: 12/17/16 04:01 12/17/16 13:00 Labs: Short CBC 12/17/16 Range/Units 04:01 WBC 10.4 (4.3-11.1) K/mcL Hgb 11.7 (11.5-15.4) g/dL Hct 34.4 L (35.3-44.9) % Plt Count 254 (140-400) K/mcL Neutrophils # 5.3 (1.6-8.9) K/mcL BMP 12/17/16 12/17/16 04:01 13:00 Sodium 137 Potassium 3.9 Chloride 103 Carbon Dioxide 25 BUN 18 Creatinine 1.70 H 1.62 H Glucose 168 H Calcium 9.3 Cardiac Enzymes 12/16/16 Range/Units 23:52 Troponin I 2.77 H* (0-0.03) ng/mL Liver Function 12/17/16 Range/Units 04:01 Total Bilirubin 0.3 (0.2-1.2) mg/dL AST 21 (5-34) Units/L ALT 14 (0-55) Units/L Alkaline Phosphatase 92 (38-126) Units/L Albumin 3.3 L (3.5-5.0) g/dL Urine 12/16/16 Range/Units 15:37 Urine Color Yellow (Yellow) Urine Clarity Clear (Clear) Urine pH 7.0 (5.0-8.0) pH Units Ur Specific [place] 1.008 L (1.010-1.025) Urine Protein Negative (Neg-Trace) mg/dL Urine Glucose (UA) Normal (Normal) mg/dL - ABG Interpretation ABG results: PT/INR, D-dimer PT 11.9 Seconds (9.4-12.1) 12/17/16 04:01 Consult Discharge Plan - Plan Referrals: Olena Salinas, BAR G[employer]GER AND LUBRICATOR TENDER [Primary Care Provider] - 12/24/16 11:00 am (web request 12/17/16) <Erik Azar H - Last Filed: 12/17/16 16:11> Date of Encounter: 12/17/16 - Constitutional Vitals: Temp Pulse Resp BP Pulse Ox 97.6 F 69 16 130/78 97 12/17/16 10:50 12/17/16 10:50 12/17/16 10:50 12/17/16 10:50 12/17/16 10:50 Internal Medicine: Result - Labs CBC & Chem 7: 12/17/16 04:01 12/17/16 13:00 Labs: Short CBC 12/17/16 Range/Units 04:01 WBC 10.4 (4.3-11.1) K/mcL Hgb 11.7 (11.5-15.4) g/dL Hct 34.4 L (35.3-44.9) % Plt Count 254 (140-400) K/mcL Neutrophils # 5.3 (1.6-8.9) K/mcL BMP 12/17/16 12/17/16 04:01 13:00 Sodium 137 Potassium 3.9 Chloride 103 Carbon Dioxide 25 BUN 18 Creatinine 1.70 H 1.62 H Glucose 168 H Calcium 9.3 Cardiac Enzymes 12/16/16 Range/Units 23:52 Troponin I 2.77 H* (0-0.03) ng/mL Liver Function 12/17/16 Range/Units 04:01 Total Bilirubin 0.3 (0.2-1.2) mg/dL AST 21 (5-34) Units/L ALT 14 (0-55) Units/L Alkaline Phosphatase 92 (38-126) Units/L Albumin 3.3 L (3.5-5.0) g/dL Urine 12/16/16 Range/Units 15:37 Urine Color Yellow (Yellow) Urine Clarity Clear (Clear) Urine pH 7.0 (5.0-8.0) pH Units Ur Specific [place] 1.008 L (1.010-1.025) Urine Protein Negative (Neg-Trace) mg/dL Urine Glucose (UA) Normal (Normal) mg/dL - ABG Interpretation ABG results: PT/INR, D-dimer PT 11.9 Seconds (9.4-12.1) 12/17/16 04:01 - Attending Attestation cardiac cath final report pending I examined this patient and my medical decision-making was reviewed with the Resident Physician. I agree with the documented findings, disposition and treatment plan as described except to the extent set forth below.
--- NOTE | 2016-12-17 15:44 | Invasive Diagnostic Lab Proc ---
Name: Tresa Kelley Date of Study: 12/17/2016 Date: 1960 Ht: 66.9in Medical Record#: [id number] Age: 56 Wt: 249.56lb Gender: Female BSA: 2.22 Order #: [id number] BMI: 39.22 Physicians Procedure Physician: Bryson Bernard MD, [facility] Referring MD: Referring MD: Staff Name Position Time In Adarsh Cheema RT (R) Monitor 02:10 PM IselaKeely zambrano RT (R) Scrub 02:10 PM Piper Virk RN Information Technology Instructor 02:10 PM Kumar Gomez RN Information Technology Instructor 02:10 PM Indications Indication Non-Stemi Procedures Performed Procedure L HRT ARTERY/VENTRICLE ANGIO PRQ CARD BM STENT W/ANGIO 1 VSL Pre-Procedure Checklist Informed consent is complete signed and on chart. H&P is on chart. ID band is on and ID verified with patient. Patient NPO for procedure The procedure was described for the patient and questions were answered. Blood Pressure: 186/87 ECG is on chart. Rhythm: NSR Plan of Care Patient will tolerate the procedure without complications. Adequate level of comfort will be maintained. Hemodynamics will remain stable Patient will recover from procedure without complications. Respiratory function will be maintained. Cardiac rhythm will remain stable. Patient temperature will be maintained. Patient and/or family have verbalized understanding of the procedure. Patient Education Chief Complaint/Reason for Test: Cardiac Cath Developmental Category: Adult (18-64 years) Developmentally Appropriate for Age: Yes Learning Barriers: None Education Needs: Procedure Education Method: Verbal Information Taught: Cardiac Cath Educational Evaluation: Able to repeat information Intravenous Access Time IV Size Location DC'd Fluid/Drip Rate Units RN 02:17 PM Midline Rt Arm 0.9NaCl 100 ml/hr Piper Virk RN 02:18 PM 22g 1 " Peripheral-Lock On Arrival Rt Hand Allergies sulfamethoxazole trimethoprim Vital Signs Time BP (mmHg) HR (bpm) O2 Sat. RR (bpm) LOC 02:10 PM 186 / 87 71 100 % 16 5 = Fully awake and oriented or at pre-proc level 02:10 PM / % 5 = Fully awake and oriented or at pre-proc level 02:25 PM / % 4 = Oriented but drowsy 02:40 PM / % 4 = Oriented but drowsy 02:56 PM / % 4 = Oriented but drowsy 03:11 PM / % 5 = Fully awake and oriented or at pre-proc level 02:19 PM 186 / 87 76 100 % 02:23 PM 191 / 93 70 99 % 16 02:28 PM 164 / 74 70 95 % 18 02:33 PM 176 / 72 67 97 % 17 02:38 PM 141 / 65 97 96 % 16 02:43 PM 148 / 65 69 94 % 15 02:48 PM 144 / 70 66 95 % 14 02:53 PM 151 / 68 66 96 % 15 02:58 PM 144 / 64 68 95 % 17 03:03 PM 143 / 71 68 95 % 14 03:08 PM 157 / 70 66 97 % 14 03:13 PM 163 / 74 66 96 % 12 03:18 PM 159 / 78 66 97 % 13 03:23 PM 151 / 67 67 96 % 13 Procedural Medications Time Medication Dose Units Method Given By 02:19 PM Oxygen 2 L/min nasal cannula Piper Virk RN 02:21 PM Versed 2 mg Intravenous Kumar Gomez RN 02:22 PM Fentanyl 50 mcg Intravenous Kumar Gomez RN 02:35 PM Lidocaine 2% 0.5 ml Subcutaneous Bryson Bernard MD, FACC 02:36 PM Heparin 2000 units Nitroglycerin 200 mcg Verapamil 2.5 mg Intraarterial Bryson Bernard MD, FACC 02:51 PM Aggrastat Bolus: 58 ml Intravenous Piper Virk RN 02:51 PM Aggrastat 12.5mg/250ml 21 ml Intravenous Piper Virk RN 02:54 PM Nitroglycerin 200 mcg Intracoronary Bryson Bernard MD 02:59 PM Heparin 2000 units Intravenous Kumar Gomez RN 03:19 PM Nitroglycerin 150 mcg Intracoronary Bryson Bernard MD 03:19 PM Fentanyl 50 mcg Intravenous Kumar Gomez RN 03:26 PM Brilinta 90 mg Orally Piper Virk RN ASA Classification: CLASS II- Mild systemic disease (i.e. well-controlled diabetes, hypertension, asthma, cigarette smoking) Olivier Score Preprocedure Postprocedure Activity 2- Moves 4 extremities sustained head lift Activity Circulation 2- SBP +/= 20 points of pre-anesthetic level Circulation Consciousness 2- Awake and alert oriented x 3 Consciousness O2 Saturation 2- Able to maintain O2 satruation of 92% on room air O2 Saturation Respiratory 2- Able to deep breathe and cough well Respiratory Total Score 10 Total Score Contrast Agent: Isovue Diagnostic Contrast: 104 ml Total Contrast: 104 ml Fluoro Dose: 909 mGy Activated Clotting Time Time Seconds to Clot 02:58 PM 201 Procedure Log Time Note Enter By 02:10 PM Pt arrived to photographic laboratory technician 2 at 14:09 scoates 02:10 PM Patient charges- Angio tray pack, Navilyst 3mm J, Pulse Oximetry and ACIST tubing and transducer scoates 02:10 PM Adarsh Cheema RT (R) Position: Monitor Time in: 14:10 scoates 02:10 PM Keely Weiss RT (R) Position: Scrub Time in: 14:10 scoates 02:10 PM Piper Virk RN Position: Information Technology Instructor Time in: 14:10 scoates 02:10 PM Kumar Gomez RN Position: Information Technology Instructor Time in: 14:10 scoates 02:10 PM Time: 14:10 Patient comfortable and pain free: Yes scoates 02:10 PM Time: 14:10LOC: 5 = Fully awake and oriented or at pre-proc level scoates 02:10 PM Physician arrived 14:10 scoates 02:11 PM Gonzalez and sonia completed scoates 02:12 PM ASA Class CLASS II- Mild systemic disease (i.e. well-controlled diabetes, hypertension, asthma, cigarette smoking) scoates 02:12 PM Sign in performed according to hospital policy. scoates 02:12 PM Procedure start 14:12 scoates 02:16 PM CathStat 02:16 PM Hair removed from procedure site in holding area using clippers. Bilateral groin prepped with Chloraprep by Keely Weiss RT (R), safety strap applied then patient was draped. Skin intact. scoates 02:16 PM Hair removed from procedure site in holding area using clippers. Right wrist prepped with Chloraprep by Keely Weiss (R), safety strap applied then patient was draped. Skin intact. scoates 02:17 PM Vitals capture started with the following parameters, Patient=Adult, Interval=5 min, Initial Vusrnqlc=435 mmHg, Deflation Rate=5 mmHg, Cuff placed on Left Arm 02:19 PM HR=76 bpm, HHBG=491/87 mmhg, StV6=949.0 % 02:20 PM Time: 14:19 Oxygen on at 2 L/min per nasal cannula by Piper Virk RN scoates 02:20 PM Recorded ECG: HR=72 Condition=Condition 1 02:20 PM Clinical Presentation: Non-STEMI scoates 02:22 PM Time: 14:21 Versed 2 mg Intravenous Given by Kumar Gomez RN scoates 02:22 PM Time: 14:22 Fentanyl 50 mcg Intravenous Given by Kumar Gomez RN scoates 02:23 PM HR=70 bpm, CYKO=991/93 mmhg, SpO2=99.0 %, Resp=16 B/min, Comment=NSR 02:25 PM Time: 14:10 Patient comfortable and pain free: Yes scoates 02:25 PM Time: 14:10LOC: 5 = Fully awake and oriented or at pre-proc level scoates 02:27 PM Pressure channel 1 zeroed. 02:28 PM HR=70 bpm, EQUD=977/74 mmhg, SpO2=95.0 %, Resp=18 B/min, Comment=NSR 02:33 PM HR=67 bpm, HIAW=684/72 mmhg, SpO2=97.0 %, Resp=17 B/min, Comment=NSR 02:35 PM Time out performed according to hospital policy scoates 02:35 PM Time: 14:35 0.5 ml Lidocaine 2% to right radial Subcutaneous Given by Bryson Bernard MD, [facility] scoates 02:36 PM Access obtained by percutaneous puncture. 6Fr 10cm Terumo Glidesheath sheath placed in right Radial artery. [id number] scoates 02:36 PM Time: 14:36 Patient given 2,000 units Heparin, 200 mcg Nitroglycerin, and 2.5 mg Verapamil Intraarterial by Bryson Bernard MD, [facility] scoates 02:37 PM 0.035 260cm Navilyst 3mmJ wire [id number] scoates 02:37 PM 5Fr TIG catheter inserted over the wire [facility] scoates 02:37 PM wire removed scoates 02:37 PM 0.035 150cm [place] Hi-Torque wire [id number] scoates 02:38 PM HR=97 bpm, MATZ=685/65 mmhg, SpO2=96.0 %, Resp=16 B/min, Comment=NSR 02:38 PM Catheter selectively placed in left ventricle scoates 02:38 PM Pressure channel 1 zero failed. 02:39 PM Pressure channel 1 zero failed. 02:39 PM Pressure channel 1 zero failed. 02:39 PM Pressure channel 1 zeroed. 02:39 PM Recorded Pressure: LV, HR=76, Condition=Condition 1 (Left Ventricle) LV 89/25/21 02:39 PM Bolus angiogram of left Ventricle complete: 10 ml/sec for a total of 30 mls scoates 02:40 PM Recorded Pressure: LV, Ao, HR=68, Condition=Condition 1 (Left Ventricle) LV 68/17/64, (Aorta) Ao 104/34/68 02:40 PM LCA angiography performed in multiple views. scoates 02:40 PM Recorded Pressure: Ao, HR=70, Condition=Condition 1 (Aorta) Ao 113/79/94 02:40 PM Time: 14:25LOC: 4 = Oriented but drowsy scoates 02:40 PM Time: 14:25 Patient comfortable and pain free: Yes scoates 02:41 PM Lesion found in Mid LAD. Pre Stenosis: 20 Pre CLAUDETTE Flow: scoates 02:41 PM Mid/Distal Left Anterior Descending Coronary Artery and diagonal branches with 20% stenosis. If graft is supplying this area, 0 % stenosis scoates 02:42 PM Lesion found in Proximal Circumflex. Pre Stenosis: 20 Pre CLAUDETTE Flow: scoates 02:42 PM Circumflex, Obtuse Marginal, Left Posterior Descending, and Left Posterolateral Coronary Arteries with 30 % stenosis. If graft is supplying this area, 0 % stenosis scoates 02:42 PM Lesion found in Mid Circumflex. Pre Stenosis: 30 Pre CLAUDETTE Flow: scoates 02:42 PM Catheter removed scoates 02:43 PM 5Fr 3DRC catheter inserted over the wire [id number] scoates 02:43 PM HR=69 bpm, OCRS=810/65 mmhg, SpO2=94.0 %, Resp=15 B/min, Comment=NSR 02:44 PM Catheter removed scoates 02:45 PM 5Fr AR 1 catheter inserted over the wire [id number] scoates 02:47 PM Coronary Dominance: right scoates 02:47 PM Recorded Pressure: Ao, HR=63, Condition=Condition 1 (Aorta) Ao 119/79/97 02:48 PM Lesion found in Mid RCA. Pre Stenosis: 95 Pre CLAUDETTE Flow: scoates 02:48 PM HR=66 bpm, HBFM=240/70 mmhg, SpO2=95.0 %, Resp=14 B/min, Comment=NSR 02:48 PM Right Coronary, Right Posterior Descending Arteries with Right Posterolateral and Acute Marginal branches with 95 % stenosis. If graft is supplying this area, 0 % stenosis scoates 02:48 PM Lesion found in Proximal RCA. Pre Stenosis: 60 Pre CLAUDETTE Flow: scoates 02:48 PM Catheter removed scoates 02:49 PM Inflation device was opened. scoates 02:49 PM PCI Status Elective scoates 02:50 PM 6Fr AR 1 Runway guide catheter was used to cannulate the PCI vessel successfully. reused? No scoates 02:51 PM Time: 14:51 Aggrastat Bolus: 58 ml Intravenous Given by Piper Virk RN Thomson pump scoates 02:51 PM Time: 14:51 Aggrastat 12.5mg/250ml 21 ml Intravenous Given by Piper Virk RN Thomson pump scoates 02:53 PM .014 Bruno 190cm guide wire across target lesion- successful. reused? No scoates 02:53 PM HR=66 bpm, FLHW=392/68 mmhg, SpO2=96.0 %, Resp=15 B/min, Comment=NSR 02:54 PM Time: 14:54 Nitroglycerin 200 mcg Intracoronary Given by Bryson Bernard MD scoates 02:54 PM 2.5 mm x 20 mm Emerge Monorail balloon across target lesion- successful. reused? No scoates 02:55 PM act drawn scoates 02:55 PM Time: 14:40 Patient comfortable and pain free: Yes scoates 02:56 PM Time: 14:40LOC: 4 = Oriented but drowsy scoates 02:56 PM Balloon inflated @ 8 anthony for 17 seconds scoates 02:57 PM Balloon inflated @ 12 anthony for 22 seconds scoates 02:58 PM HR=68 bpm, KPVV=909/64 mmhg, SpO2=95.0 %, Resp=17 B/min, Comment=NSR 02:58 PM At 14:58 the ACT was 201 seconds. scoates 02:59 PM Time: 14:59 Heparin 2000 units Intravenous Given by Kumar Gomez RN scoates 03:00 PM Balloon catheter removed intact. scoates 03:01 PM 2.75mm x 38mm Synergy drug-eluting stent across target lesion- successful Lot #[id number] scoates 03:03 PM Stent deployed @ 18 anthony for 26 seconds scoates 03:03 PM HR=68 bpm, OFFD=882/71 mmhg, SpO2=95.0 %, Resp=14 B/min, Comment=NSR 03:04 PM Stent delivery system removed intact. scoates 03:05 PM 3.5mm x 20mm Synergy drug-eluting stent across target lesion- successful Lot #[id number] scoates 03:08 PM HR=66 bpm, HBIP=916/70 mmhg, SpO2=97.0 %, Resp=14 B/min, Comment=NSR 03:09 PM Stent deployed @ 16 anthony for 30 seconds scoates 03:10 PM Stent delivery system removed intact. scoates 03:11 PM Time: 14:56LOC: 4 = Oriented but drowsy scoates 03:11 PM Time: 14:55 Patient comfortable and pain free: Yes scoates 03:11 PM 3.75 mm x 12mm NC Trek Rx balloon across target lesion- successful. reused? No scoates 03:12 PM Balloon inflated @ 12 anthony for 17 seconds scoates 03:13 PM HR=66 bpm, ASBR=131/74 mmhg, SpO2=96.0 %, Resp=12 B/min, Comment=NSR 03:13 PM Balloon inflated @ 20 anthony for 31 seconds scoates 03:14 PM Balloon inflated @ 20 anthony for 12 seconds scoates 03:14 PM Balloon catheter removed intact. scoates 03:15 PM 3.5 mm x 20mm NC Trek Rx balloon across target lesion- successful. reused? No scoates 03:16 PM Recorded Pressure: Ao, HR=69, Condition=Condition 1 (Aorta) Ao 137/72/97 03:17 PM Balloon inflated @ 14 anthony for 15 seconds scoates 03:18 PM Balloon inflated @ 16 anthony for 12 seconds scoates 03:18 PM HR=66 bpm, GZOD=288/78 mmhg, SpO2=97.0 %, Resp=13 B/min, Comment=NSR 03:19 PM Balloon inflated @ 18 anthony for 14 seconds scoates 03:19 PM Time: 15:19 Nitroglycerin 150 mcg Intracoronary Given by Bryson Bernard MD scoates 03:19 PM Time: 15:19 Fentanyl 50 mcg Intravenous Given by Kumar Gomez RN scoates 03:19 PM Balloon catheter removed intact. scoates 03:22 PM Guide wire removed intact. scoates 03:22 PM Guide catheter removed intact. scoates 03:23 PM Arterial sheath pulled, Vasc Band closure device used and was Successful S/N. scoates 03:23 PM 10 ml air in Vasc Band. scoates 03:23 PM HR=67 bpm, DIPM=550/67 mmhg, SpO2=96.0 %, Resp=13 B/min, Comment=NSR 03:24 PM Sign out completed: Radiation Dose 909.44 mGy Fluoro Time: 9.8 Isovue 370 - 200ml contrast 104.2 ml given by Bryson Bernard MD, FACC. Complications: NoneCardiac Rehab Consult needed: YesConfirmed administered medications: Yes scoates 03:24 PM Isovue 370 - 200ml,1 Bottle(s) used. scoates 03:24 PM Post ECG NSR scoates 03:24 PM Post Blood Pressure 151/67 scoates 03:24 PM Information taught Cardiac Cath, PCI, and Vasc Band scoates 03:24 PM Education needs Procedure, Plan of Care, and Disease Process scoates 03:24 PM Learning barriers :Sedated scoates 03:24 PM Education Methods Verbal scoates 03:24 PM Education evaluation Needs further instruction scoates 03:25 PM Site status No bleeding/hematoma - Rt Wrist as reported by Keely Weiss RT (R) at 15:25 scoates 03:25 PM Delay to floor No scoates 03:25 PM Family placed in consult room. scoates 03:25 PM Fluoro Time: 9.8 scoates 03:25 PM Isovue 370 - 200ml contrast 104.2 ml given by Bryson Bernard MD, FACC. scoates 03:25 PM Radiation Dose 909.44 mGy scoates 03:26 PM Time: 15:11 Patient comfortable and pain free: Yes scoates 03:26 PM Time: 15:11LOC: 5 = Fully awake and oriented or at pre-proc level scoates 03:27 PM Time: 15:26 Brilinta 90 mg Orally Given by Piper Virk RN scoates 03:28 PM 15:28 Post Pulses Rt Radial 2+ scoates 03:31 PM Report given to timothy MERINO Pt taken to 2NE Room #30. 15:30 scoates 03:35 PM Patient out of room: 15:35 scoates Complications Complication None Hemodynamics Pressures Site Systolic/A Wave Diastolic/V Wave Mean LV 89 25 21 LV 68 17 64 AO 104 34 68 AO 113 79 94 AO 119 79 97 AO 137 72 97 Post Procedure Information Blood Pressure: 151/67 mmHg Rhythm: NSR Post procedural instructions were given Site Checks Time Location Status Staff Sheath In? Note 03:25 PM Rt Wrist No bleeding/hematoma Keely Wiess RT (R) Pulses Time Site Pre-Procedure Post-Procedure Note 12/17/2016 2:17:00 PM Bilateral radial 2+ 12/17/2016 2:17:00 PM Bilateral DP & PT 2+ 3:28:00 PM Rt Radial 2+ Updated by Piper Santos RN on 12/17/2016 3:36:19 PM electronically signed on 12/17/2016 3:36:44 PM with status of Final
[2016-12-17] MEDS: Famotidine 20 MG TABLET PO SCH (16:37)
[2016-12-17] MEDS: 0.9 % Sodium Chloride 1,000 ML IVC SCH (23:15)
[2016-12-18] MEDS: Famotidine 20 MG TABLET PO SCH (06:05)
[2016-12-18 07:31] VITALS: BP 137/73
[2016-12-18] MEDS: Aspirin 81 MG TAB.CHEW PO SCH (08:48)
[2016-12-18] MEDS: Cholecalciferol (D-3) 1,000 UNIT TABLET PO SCH (08:48)
[2016-12-18] MEDS: *HR* Ticagrelor 90 MG TABLET PO SCH (08:48)
[2016-12-18] MEDS: hydroCHLOROthiazide 25 MG TABLET PO SCH (08:48)
[2016-12-18] MEDS: NIFEdipine XL (24 HR) 30 MG TAB.ER.24 PO SCH (08:50)
[2016-12-18] MEDS: Nicotine 21 MG PATCH.TD24 TD SCH (08:50)
[2016-12-18] MEDS: Insulin DETEMIR 100 UNIT/ML X5UNITS SQ SCH (08:53)
[2016-12-18] MEDS: Insulin LISPRO 300 UNITS/3 ML VIAL SQ SCH ×2 (08:55→12:05)
[2016-12-18] MEDS: *HR* HYDROcodone/Acet 7.5/325 mg TABLET PO PRN (08:59)
--- NOTE | 2016-12-18 10:13 | Cardiology Progress Note ---
Date of Encounter: 12/18/16 Time of Encounter: 09:00 Assessment and Plan (1) Elevated troponin Current Visit: Yes Status: Acute Per cardiology: -NSTEMI -Troponin peak 3.63. -ECG with sinus rhythm with bundle branch block, BBB noted on previous ECG. -Admitted with chest burning that was relieved with GI cocktail. -Echo 02/2016 with LVEF 60-65%, mild diastolic dysfunction, no significant valvular dysfunction, all saenz with normal motion. -[facility] 2010 with luminal irregularities in LAD, luminal irregularities in circumflex, luminal irregularities in RCA. -Per review of unofficial report of [facility], patient with 95% mid RCA stenosis with 2 drug eluding stents placed. Otherwise, mild CAD. -On asa, statin, beta emiliana, and brilinta. -Patient denies chest pain. -Right radial access site education given to patient. -Educated patient on importance of dual anti-platelet therapy for at least one year uninterrupted. Patient states understanding. -Will chávez check brilinta for patient. IF unaffordable, will switch to plavix in outpatient setting. -Cardiology will sign off and will follow in outpatient setting. -Free 30day brilinta card given to patient. Patient educated to not miss dual anti-platelet medications. (2) Chest pain Current Visit: Yes Status: Acute Per cardiology: -Admitted with midternal chest "buring." -Pain relieved by GI cocktail. -Denies pain since given cocktail. -Denies chest pain. (3) Hyperlipidemia Current Visit: Yes Status: Chronic Per cardiology: -KNown hyperlipidemia. -On simvastatin at home. -Patient refused to take atorvastatin, due to family having terminal gauger side effects from medication. Patient agreeable to rosuvastatin. -Triglycerides 311, cholesterol 159, LDL 65, HDL 32. -On rosuvastatin. Qualifiers: Hyperlipidemia type: unspecified Qualified Code(s): E78.5 - Hyperlipidemia , unspecified (4) H/O cardiac pacemaker Current Visit: Yes Per cardiology: -Known pacemaker for sick sinus syndrome. -Pacemaker placed 2014. -Last device check 05/2016 with normal function, one ventricular high rate noted that lasted for 1 second. -Pateint scheduled for deivce check on Saturday. -Will re-schedule device check, message sent to office. -Will monitor in outpatient setting. (5) CKD (chronic kidney disease), stage III Current Visit: Yes Status: Chronic Per cardiology: -Known CKD stage III. -Follows with nephrology. -Recommend following with primary group home paraprofessional. Discussion w patient/family: The assessment and plan as outlined above was discussed with the patient and/or family members who expressed understanding and agreement. All questions were answered. Thank you for involving us in the care of your patient. Please call with any questions. Discussed and reviewed with . Subjective Principal diagnosis: NSTEMI Interval history: Patient with LHC yesterday with 2 MEE to RCA. Patient denies chest pain overnight, Denies issues with right radial access site. Objective Vital Signs, Last 4 Hours Pulse Resp BP Pulse Ox 12/18/16 07:00 64 12 137/73 98 General: Conversant, No Apparent Distress HEENT: Atraumatic, Normocephaly, Mucus Membranes Moist Neck: No JVD, Normal carotid pulses Cardiac: Reg Rate and Rhythm, Normal S1 and S2, No Murmur Lungs: Normal Breath Sounds, No Wheeze, Rales, Rhonchi Neuro: Alert and responsive, No focal deficits noted Abdomen: Soft, Non-Tender Skin: No rashes noted on visualized skin, Other (Right radial access site with hematoma or ecchymosis ) Musculoskeletal: No Chest Wall Tenderness Extremities: No Clubbing, No Cyanosis, No Edema, Normal Pulses Results 12/17/16 04:01 12/17/16 13:00 Lab Results Active Medications Acetaminophen (Tylenol) 650 mg PO Q6HR PRN PRN Reason: Mild Pain (1-3) Stop: 06/17/17 04:21 Hydrocodone Bitart/Acetaminophen ([place] 7.5-325 Mg) 1 tab PO TID PRN PRN Reason: Moderate Pain (4-6) Stop: 06/17/17 16:52 Last Admin: 12/18/16 08:59 Dose: 1 tab Alprazolam (Xanax) 0.5 mg PO BID PRN; Protocol PRN Reason: Anxiety Stop: 06/17/17 06:12 Last Admin: 12/17/16 09:56 Dose: 0.5 mg Aspirin (Aspirin) 81 mg PO DAILY JACK Stop: 06/17/17 09:01 Last Admin: 12/18/16 08:48 Dose: 81 mg Dextrose/Water (Dextrose 50% (Syg)) 25 ml IVP AD PRN PRN Reason: Hypoglycemia Stop: 06/17/17 05:09 Famotidine (Pepcid) 10 mg PO 0730,1630 [facility] PRN Reason: Protocol Stop: 06/18/17 16:31 Last Admin: 12/18/16 06:05 Dose: 10 mg Glucagon (Glucagen) 1 mg IM ONCE PRN PRN Reason: Hypoglycemia Stop: 06/17/17 05:09 Glucose (Gluctose) 15 gm PO ONCE PRN PRN Reason: Hypoglycemia Stop: 06/17/17 05:09 Glucose (Gluctose) 30 gm PO ONCE PRN PRN Reason: Hypoglycemia Stop: 06/17/17 05:09 Hydrochlorothiazide (Hydrochlorothiazide) 25 mg PO DAILY [facility] PRN Reason: Protocol Stop: 06/17/17 09:01 Last Admin: 12/18/16 08:48 Dose: 25 mg Sodium Chloride (0.9 % Sodium Chloride) 1,000 mls @ 50 mls/hr IVC .Q20H [facility] Stop: 06/17/17 04:31 Last Admin: 12/17/16 23:15 Dose: 50 mls/hr Dextrose (Dextrose 5%) 1,000 mls @ 100 mls/hr IVC .Q10H PRN PRN Reason: HYPOGLYCEMIA Stop: 06/17/17 05:09 Insulin Detemir (Levemir) 20 unit SQ BID [facility] Stop: 06/17/17 09:01 Last Admin: 12/18/16 08:53 Dose: 20 unit Insulin Human Lispro (Humalog) 0 units SQ TIDAC [facility] PRN Reason: Protocol Stop: 06/17/17 07:31 Last Admin: 12/18/16 08:55 Dose: 4 units Insulin Human Lispro (Humalog) 0 units SQ HS [facility] PRN Reason: Protocol Stop: 06/17/17 21:01 Last Admin: 12/17/16 20:54 Dose: Not Given Lisinopril (Zestril) 5 mg PO DAILY [facility] PRN Reason: Protocol Stop: 06/17/17 09:01 Last Admin: 12/18/16 08:48 Dose: 5 mg Metoprolol Tartrate (Lopressor) 25 mg PO BID [facility] Stop: 06/17/17 09:01 Last Admin: 12/18/16 08:48 Dose: 25 mg Morphine Sulfate (Morphine Sulfate) 2 mg IVP Q4HR PRN PRN Reason: Severe Pain (7-10) Stop: 06/17/17 04:21 Naloxone HCl (Narcan) 0.4 mg IVP Q2MIN PRN PRN Reason: Opioid Reversal Stop: 06/17/17 04:21 Nicotine (Nicoderm) 21 mg TD DAILY JACK PRN Reason: Protocol Stop: 06/17/17 09:01 Last Admin: 12/18/16 08:50 Dose: 21 mg Nifedipine (Procardia Xl) 30 mg PO DAILY JACK PRN Reason: Protocol Stop: 06/17/17 09:01 Last Admin: 12/18/16 08:50 Dose: 30 mg Nitroglycerin (Nitroglycerin) 0.4 mg SL Q5MIN PRN PRN Reason: Chest Pain Stop: 06/17/17 03:07 Last Admin: 12/16/16 14:32 Dose: 0.4 mg Ondansetron HCl (Zofran) 4 mg IVP Q8HR PRN PRN Reason: Nausea And Vomiting Stop: 06/17/17 04:21 Rosuvastatin Calcium (Crestor) 40 mg PO HS [facility] Stop: 06/17/17 21:01 Last Admin: 12/17/16 20:53 Dose: 40 mg Ticagrelor (Brilinta) 90 mg PO BID [facility] Stop: 06/17/17 21:01 Last Admin: 12/18/16 08:48 Dose: 90 mg Vitamin D (Vitamin D) 1,000 unit PO DAILY [facility] Stop: 06/17/17 09:01 Last Admin: 12/18/16 08:48 Dose: 1,000 unit - Imaging and Cardiology Chest Xray: report reviewed Echo: report reviewed Cardiac cath: report reviewed - EKG Interpretation EKG results cardiology: other (Telemetry reviewed with average HR previous 12 hours noted to be 64, sinus rhythm with intermittent pacing.) Consult Discharge Plan - Plan Referrals: Olena Salinas, DIAZ [Primary Care Provider] - 12/24/16 11:00 am (web request 12/17/16)
--- NOTE | 2016-12-18 11:24 | Discharge Summary ---
Date of Encounter: 12/18/16 Time of Encounter: 11:23 - Discharge Diagnosis (1) NSTEMI (non-ST elevated myocardial infarction) Priority: Primary Status: Acute (2) DVT prophylaxis Priority: Secondary Status: Acute (3) Essential hypertension Priority: Secondary Status: Chronic (4) Type 2 diabetes mellitus Priority: Secondary Status: Chronic Qualifiers: Diabetes mellitus complication status: without complication Diabetes mellitus shelter insulin use: without roasterman use Qualified Code(s): E11.9 - Type 2 diabetes mellitus without complications (5) Hyperlipidemia Priority: Secondary Status: Chronic Qualifiers: Hyperlipidemia type: unspecified Qualified Code(s): E78.5 - Hyperlipidemia , unspecified - Discharge Medications Prescriptions: Metoprolol [Lopressor] 25 mg PO BID #60 tab Rosuvastatin [Crestor] 40 mg PO HS #30 tab Ticagrelor [Brilinta] 90 mg PO BID #60 tab Home Medications: ALPRAZolam [Xanax 0.5 MG Tablet] 0.5 mg PO BID PRN 12/16/16 [History] Aspirin [Lo-Dose Aspirin EC] 81 mg PO DAILY 12/16/16 [History] Cholecalciferol (D-3) [Vitamin D] 5,000 unit PO DAILY 12/16/16 [History] HYDROcodone/Acet 7.5/325 mg [[place] 7.5-325 mg] 1 tab PO TID PRN 12/16/16 [ History] Insulin DETEMIR [Levemir] 20 unit SQ BID 12/16/16 [History] Insulin LISPRO [HumaLOG] 20 units SQ TIDWM MDD PLUS SLIDING SCALE 12/16/16 [ History] Liraglutide [Victoza 2-Abhay] 1.2 mg SQ DAILY 12/16/16 [History] Lisinopril [Zestril] 5 mg PO DAILY 12/16/16 [History] NIFEdipine XL (24 HR) [Procardia XL] 30 mg PO DAILY 12/16/16 [History] Omeprazole Magnesium [Prilosec Otc] 20 mg PO DAILY 12/16/16 [History] Tramadol HCl [Ultram] 100 mg PO TID PRN 12/16/16 [History] hydroCHLOROthiazide [Hydrochlorothiazide] 25 mg PO DAILY 12/16/16 [History] Metoprolol [Lopressor] 25 mg PO BID #60 tab 12/18/16 [Rx] Rosuvastatin [Crestor] 40 mg PO HS #30 tab 12/18/16 [Rx] Ticagrelor [Brilinta] 90 mg PO BID #60 tab 12/18/16 [Rx] Allergies/Adverse Reactions: Allergies sulfamethoxazole [From Bactrim] Adverse Reaction (Verified 12/16/16 01:19) See Comments trimethoprim [From Bactrim] Adverse Reaction (Verified 12/16/16 01:19) See Comments Procedures/tests Complete & Pending: Procedures Performed prior 72 hours Category Date Time Status Left Heart Cath [CL Cardiac Catheterization] [CL] Operations And Maintenance Supervisor 12/17/16 13:39 Ordered Routine ECG 12 lead ECG [ECG] Routine Y 12/17/16 16:25 Completed Date of admission: 12/16/16 04:20 Primary care physician: Olena Salinas CNP Consults: 12/16/16 04:23 Consult to Cardiology [CONS] Routine Comment: Consulting Provider: Cardiology Karen Reason for Consult: NSTEMI Call Completed: No 12/18/16 08:11 Consult to Cardiac Rehabilitation-Phase1 [CONS] Routine Comment: Reason for Consult: MEE to RCA, NSTEMI Call Completed: No Discharging clinician: Cintia Epperson Anticipated date of discharge: 12/18/16 - Patient Status Disposition: Home, Self-Care Condition: Good Functional capacity at discharge: independent ambulation Overall status at discharge: patient is back to baseline - Discharge Instructions Follow Up With: Olena Salinas CNP [Primary Care Provider] - 12/24/16 11:00 am (web request 12/17/16) Additional Instructions: Please follow up with your primary care physician and laundry aid within one week after your discharge from the hospital. Brilinta and Metoprolol have been added to your home medications. Please take these medications as prescribed. Your home dose of simvastatin has been discontinued. Rosuvastatin has been added to your home medications. Please take this medication as prescribed. Please continue to take Aspirin and Brilinta as prescribed. Please continue all your other home medications as prescribed by your primary care physician. - Diet and Activity Activity: resume usual activities as tolerated Diet: diabetic diet, low fat, low cholesterol, low salt diet Hospital course: Ms. Kelley is a 56 year old female with PMH Of DM, HTN, HLD, CKD stage III, sick sinus syndrome s/p permanent pacemaker placement who was admitted for management of NSTEMI. Pt was followed by cardiology and underwent LHC which showed 95% mid RCA stenosis and 2 MEE were placed and mild CAD was reported. Pt was started on BB, Brilinta in addition to continuation of aspirin. Pt is currently hemodynamically stable and cleared for discharge from cardiac stand point. She will be discharged to home with follow up with PCP and cardiology. Pt demonstrates understanding of her diagnosis and agrees with the discharge care and plan. - Time Spent with Patient Total time spent providing and/or coordinating discharge services: Greater than 30 minutes - Constitutional Vitals: Temp Pulse Resp BP Pulse Ox 97.9 F 64 12 137/73 98 12/17/16 23:31 12/18/16 07:00 12/18/16 07:00 12/18/16 07:00 12/18/16 07:00 General appearance: Present: A&O X 3, pleasant, no acute distress, obese, answers questions appropriately - Head Head exam: Present: atraumatic, normocephalic - Eye Eye exam: Present: conjuntiva pink, sclera anicteric - Respiratory Respiratory exam: Present: CTAB. Absent: accessory muscle use, rales, rhonchi, wheezes - Cardiovascular Cardiovascular exam: Present: RRR, +S1, +S2. Absent: diastolic murmur, gallop, rubs, systolic murmur - GI/Abdominal GI/Abdominal exam: Present: normal bowel sounds, soft, no peritoneal signs. Absent: distended, tenderness - Extremities Exam Extremities exam: Present: warm, radial pulses palpable and symetrical. Absent : calf tenderness, cyanotic, pedal edema - Neurological Exam Neurological exam: Present: alert, oriented X3 - Psychiatric Psychiatric exam: Present: normal affect, normal mood
--- NOTE | 2016-12-18 17:43 | Electrocardiograph Report ---
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
--- NOTE | 2016-12-20 13:27 | Invasive Diagnostic Lab ---
Name: Tresa Kelley Date of Study: 12/17/2016 Date: 1960 Ht: 169.9 cm /66.9 in Medical Record#: [id number] Age: 56 Wt: 113.2 kg / 249.56 lb Account/Order#: [id number] Gender: Female BSA: 2.22 Order #: [id number] Fluoro Dose: 909 mGy BMI: 39.22 Procedure Physician: Bryson Bernard MD, [facility] Referring MD: Olena Salinas Referring MD: Procedures Performed: Transradial LEFT HEART CATH Stent w/ PTCA Single Major Vessel Indications: Non-Stemi Impressions: There is severe one vessel coronary artery disease. The left ventricle is normal and has normal contractility EF 55% Patient had successful PTCA/Drug-Eluting Stent placement in the mid RCA. Recommendations: Optimal medical therapy of patient's disease. Aggressive risk factor modification. History/Risk Factors: CP Renal disease PPM Diabetes Hypertension Current/Recent Smoker Family History of CAD Procedure Access obtained in the right Radial artery by percutaneous puncture Patient had successful PTCA/Drug-Eluting Stent placement in the mid RCA. Complications: None Contrast: Isovue 104ml Hemodynamics: Pressures Site Systolic/ A Wave Diastolic/ V Wave End Diastolic/ Mean HR LV 89 25 21 76 LV 68 17 64 49 AO 104 34 68 74 AO 113 79 94 70 AO 119 79 97 63 AO 137 72 97 69 LV Ventriculography Ejection Method: LV Gram Ejection Fraction: 55% Wall Motion: LÓPEZ Anterobasal Normal Anterolateral Normal Apical: Normal Inferoapical Normal Inferobasal Normal Coronary Dominance: right Lesion Findings/Interventions * Left Main Coronary Artery The LMCA is angiographically free of disease. * Left Anterior Descending There is a 20% stenosis in the Mid LAD. * Circumflex There is a 20% stenosis in the Proximal Circumflex. There is a 30% stenosis in the Mid Circumflex. * Right Coronary Artery There is a 60% stenosis in the Proximal RCA. There is a 95% stenosis in the Mid RCA. The lesion has thrombus present. An intervention was performed on the Mid RCA with a final stenosis of 0%. There were no lesion complications. Interventional Device(s) Vessel Segment Type Name Diameter (mm) Length (mm) Mid RCA Drug Eluting Stent Synergy 2.75 38 Mid RCA Balloon NC Trek Rx 3.5 20 Mid RCA Balloon Emerge Monorail 2.5 20 Mid RCA Drug Eluting Stent Synergy 3.5 20 Mid RCA Balloon NC Trek Rx 3.75 12 Updated by Piper Santos RN on 12/17/2016 3:35:33 PM Bryson Bernard MD, [facility] electronically signed on 12/20/2016 1:21:03 PM with status of Final
--- NOTE | 2016-12-21 14:19 | Invasive Diagnostic Lab Proc ---
Name: Tresa Kelley Date of Study: 12/17/2016 Date: 1960 Ht: 66.9in Medical Record#: [id number] Age: 56 Wt: 249.56lb Gender: Female BSA: 2.22 Order #: [id number] BMI: 39.22 Physicians Procedure Physician: Bryson Bernard MD, FACC Referring MD: Olena Salinas CNP Referring MD: Staff Name Position Time In Adarsh Cheema RT (R) Monitor 02:10 PM IselaKeely zambrano RT (R) Scrub 02:10 PM Piper Virk RN Relocation Counselor 02:10 PM Kumar Gomez RN Relocation Counselor 02:10 PM Indications Indication Non-Stemi Procedures Performed Procedure L HRT ARTERY/VENTRICLE ANGIO PRQ CARD BM STENT W/ANGIO 1 VSL MOD SED OTH PHYS/QHP 5/>YRS MOD SED OTHER PHYS/QHP EA MOD SED OTHER PHYS/QHP EA MOD SED OTHER PHYS/QHP EA Pre-Procedure Checklist Informed consent is complete signed and on chart. H&P is on chart. ID band is on and ID verified with patient. Patient NPO for procedure The procedure was described for the patient and questions were answered. Blood Pressure: 186/87 ECG is on chart. Rhythm: NSR Plan of Care Patient will tolerate the procedure without complications. Adequate level of comfort will be maintained. Hemodynamics will remain stable Patient will recover from procedure without complications. Respiratory function will be maintained. Cardiac rhythm will remain stable. Patient temperature will be maintained. Patient and/or family have verbalized understanding of the procedure. Patient Education Chief Complaint/Reason for Test: Cardiac Cath Developmental Category: Adult (18-64 years) Developmentally Appropriate for Age: Yes Learning Barriers: None Education Needs: Procedure Education Method: Verbal Information Taught: Cardiac Cath Educational Evaluation: Able to repeat information Intravenous Access Time IV Size Location DC'd Fluid/Drip Rate Units RN 02:17 PM Midline Rt Arm 0.9NaCl 100 ml/hr Piper Virk RN 02:18 PM 22g 1 " Peripheral-Lock On Arrival Rt Hand Allergies sulfamethoxazole trimethoprim Vital Signs Time BP (mmHg) HR (bpm) O2 Sat. RR (bpm) LOC 02:10 PM 186 / 87 71 100 % 16 5 = Fully awake and oriented or at pre-proc level 02:10 PM / % 5 = Fully awake and oriented or at pre-proc level 02:25 PM / % 4 = Oriented but drowsy 02:40 PM / % 4 = Oriented but drowsy 02:56 PM / % 4 = Oriented but drowsy 03:11 PM / % 5 = Fully awake and oriented or at pre-proc level 02:19 PM 186 / 87 76 100 % 02:23 PM 191 / 93 70 99 % 16 02:28 PM 164 / 74 70 95 % 18 02:33 PM 176 / 72 67 97 % 17 02:38 PM 141 / 65 97 96 % 16 02:43 PM 148 / 65 69 94 % 15 02:48 PM 144 / 70 66 95 % 14 02:53 PM 151 / 68 66 96 % 15 02:58 PM 144 / 64 68 95 % 17 03:03 PM 143 / 71 68 95 % 14 03:08 PM 157 / 70 66 97 % 14 03:13 PM 163 / 74 66 96 % 12 03:18 PM 159 / 78 66 97 % 13 03:23 PM 151 / 67 67 96 % 13 Procedural Medications Time Medication Dose Units Method Given By 02:19 PM Oxygen 2 L/min nasal cannula Piper Virk RN 02:21 PM Versed 2 mg Intravenous Kumar Gomez RN 02:22 PM Fentanyl 50 mcg Intravenous Kumar Gomez RN 02:35 PM Lidocaine 2% 0.5 ml Subcutaneous Bryson Bernard MD, FAC 02:36 PM Heparin 2000 units Nitroglycerin 200 mcg Verapamil 2.5 mg Intraarterial Bryson Bernard MD, FACC 02:51 PM Aggrastat Bolus: 58 ml Intravenous Piper Virk RN 02:51 PM Aggrastat 12.5mg/250ml 21 ml Intravenous Piper Virk RN 02:54 PM Nitroglycerin 200 mcg Intracoronary Bryson Bernard MD 02:59 PM Heparin 2000 units Intravenous Kumar Gomez RN 03:19 PM Nitroglycerin 150 mcg Intracoronary Bryson Bernard MD 03:19 PM Fentanyl 50 mcg Intravenous Kumar Gomez RN 03:26 PM Brilinta 90 mg Orally Ppier Virk RN ASA Classification: CLASS II- Mild systemic disease (i.e. well-controlled diabetes, hypertension, asthma, cigarette smoking) Olivier Score Preprocedure Postprocedure Activity 2- Moves 4 extremities sustained head lift Activity Circulation 2- SBP +/= 20 points of pre-anesthetic level Circulation Consciousness 2- Awake and alert oriented x 3 Consciousness O2 Saturation 2- Able to maintain O2 satruation of 92% on room air O2 Saturation Respiratory 2- Able to deep breathe and cough well Respiratory Total Score 10 Total Score Contrast Agent: Isovue Diagnostic Contrast: 104 ml Total Contrast: 104 ml Fluoro Dose: 909 mGy Activated Clotting Time Time Seconds to Clot 02:58 PM 201 Procedure Log Time Note Enter By 02:10 PM Pt arrived to dentures lab technician 2 at 14:09 scoates 02:10 PM Patient charges- Angio tray pack, Navilyst 3mm J, Pulse Oximetry and ACIST tubing and transducer scoates 02:10 PM Adarsh Cheema RT (R) Position: Monitor Time in: 14:10 scoates 02:10 PM Keely Weiss RT (R) Position: Scrub Time in: 14:10 scoates 02:10 PM Piper Virk RN Position: Relocation Counselor Time in: 14:10 scoates 02:10 PM Kumar Gomez RN Position: Relocation Counselor Time in: 14:10 scoates 02:10 PM Time: 14:10 Patient comfortable and pain free: Yes scoates 02:10 PM Time: 14:10LOC: 5 = Fully awake and oriented or at pre-proc level scoates 02:10 PM Physician arrived 14:10 scoates 02:11 PM Talisha completed scoates 02:12 PM ASA Class CLASS II- Mild systemic disease (i.e. well-controlled diabetes, hypertension, asthma, cigarette smoking) scoates 02:12 PM Sign in performed according to hospital policy. scoates 02:12 PM Procedure start 14:12 scoates 02:16 PM CathStat 02:16 PM Hair removed from procedure site in holding area using clippers. Bilateral groin prepped with Chloraprep by Keely Weiss RT (R), safety strap applied then patient was draped. Skin intact. scoates 02:16 PM Hair removed from procedure site in holding area using clippers. Right wrist prepped with Chloraprep by Keely Weiss RT (R), safety strap applied then patient was draped. Skin intact. scoates 02:17 PM Vitals capture started with the following parameters, Patient=Adult, Interval=5 min, Initial Ifnlkbrq=387 mmHg, Deflation Rate=5 mmHg, Cuff placed on Left Arm 02:19 PM HR=76 bpm, JNRA=021/87 mmhg, NmK8=343.0 % 02:20 PM Time: 14:19 Oxygen on at 2 L/min per nasal cannula by Piper Virk RN scoates 02:20 PM Recorded ECG: HR=72 Condition=Condition 1 02:20 PM Clinical Presentation: Non-STEMI scoates 02:22 PM Time: 14:21 Versed 2 mg Intravenous Given by Kumar Gomez RN scoates 02: PM Time: 14:22 Fentanyl 50 mcg Intravenous Given by Kumar Gomez RN scoates 02:23 PM HR=70 bpm, OTXB=809/93 mmhg, SpO2=99.0 %, Resp=16 B/min, Comment=NSR 02:25 PM Time: 14:10 Patient comfortable and pain free: Yes scoates 02:25 PM Time: 14:10LOC: 5 = Fully awake and oriented or at pre-proc level scoates 02:27 PM Pressure channel 1 zeroed. 02:28 PM HR=70 bpm, WWWZ=469/74 mmhg, SpO2=95.0 %, Resp=18 B/min, Comment=NSR 02:33 PM HR=67 bpm, TJNZ=476/72 mmhg, SpO2=97.0 %, Resp=17 B/min, Comment=NSR 02:35 PM Time out performed according to hospital policy scoates 02:35 PM Time: 14:35 0.5 ml Lidocaine 2% to right radial Subcutaneous Given by Bryson Bernard MD, [facility] scoates 02:36 PM Access obtained by percutaneous puncture. 6Fr 10cm Terumo Glidesheath sheath placed in right Radial artery. [id number] scoates 02:36 PM Time: 14:36 Patient given 2,000 units Heparin, 200 mcg Nitroglycerin, and 2.5 mg Verapamil Intraarterial by Bryson Bernard MD, [facility] scoates 02:37 PM 0.035 260cm Navilyst 3mmJ wire [id number] scoates 02:37 PM 5Fr TIG catheter inserted over the wire [facility] scoates 02:37 PM wire removed scoates 02:37 PM 0.035 150cm [place]inckrodt Wholey Hi-Torque wire [id number] scoates 02:38 PM HR=97 bpm, GKNV=374/65 mmhg, SpO2=96.0 %, Resp=16 B/min, Comment=NSR 02:38 PM Catheter selectively placed in left ventricle scoates 02:38 PM Pressure channel 1 zero failed. 02:39 PM Pressure channel 1 zero failed. 02:39 PM Pressure channel 1 zero failed. 02:39 PM Pressure channel 1 zeroed. 02:39 PM Recorded Pressure: LV, HR=76, Condition=Condition 1 (Left Ventricle) LV 89/25/21 02:39 PM Bolus angiogram of left Ventricle complete: 10 ml/sec for a total of 30 mls scoates 02:40 PM Recorded Pressure: LV, Ao, HR=68, Condition=Condition 1 (Left Ventricle) LV 68/17/64, (Aorta) Ao 104/34/68 02:40 PM LCA angiography performed in multiple views. scoates 02:40 PM Recorded Pressure: Ao, HR=70, Condition=Condition 1 (Aorta) Ao 113/79/94 02:40 PM Time: 14:25LOC: 4 = Oriented but drowsy scoates 02:40 PM Time: 14:25 Patient comfortable and pain free: Yes scoates 02:41 PM Lesion found in Mid LAD. Pre Stenosis: 20 Pre CLAUDETTE Flow: scoates 02:41 PM Mid/Distal Left Anterior Descending Coronary Artery and diagonal branches with 20% stenosis. If graft is supplying this area, 0 % stenosis scoates 02:42 PM Lesion found in Proximal Circumflex. Pre Stenosis: 20 Pre CLAUDETTE Flow: scoates 02:42 PM Circumflex, Obtuse Marginal, Left Posterior Descending, and Left Posterolateral Coronary Arteries with 30 % stenosis. If graft is supplying this area, 0 % stenosis scoates 02:42 PM Lesion found in Mid Circumflex. Pre Stenosis: 30 Pre CLAUDETTE Flow: scoates 02:42 PM Catheter removed scoates 02:43 PM 5Fr 3DRC catheter inserted over the wire [id number] scoates 02:43 PM HR=69 bpm, OWET=271/65 mmhg, SpO2=94.0 %, Resp=15 B/min, Comment=NSR 02:44 PM Catheter removed scoates 02:45 PM 5Fr AR 1 catheter inserted over the wire [id number] scoates 02:47 PM Coronary Dominance: right scoates 02:47 PM Recorded Pressure: Ao, HR=63, Condition=Condition 1 (Aorta) Ao 119/79/97 02:48 PM Lesion found in Mid RCA. Pre Stenosis: 95 Pre CLAUDETTE Flow: scoates 02:48 PM HR=66 bpm, JJTV=732/70 mmhg, SpO2=95.0 %, Resp=14 B/min, Comment=NSR 02:48 PM Right Coronary, Right Posterior Descending Arteries with Right Posterolateral and Acute Marginal branches with 95 % stenosis. If graft is supplying this area, 0 % stenosis scoates 02:48 PM Lesion found in Proximal RCA. Pre Stenosis: 60 Pre CLAUDETTE Flow: scoates 02:48 PM Catheter removed scoates 02:49 PM Inflation device was opened. scoates 02:49 PM PCI Status Elective scoates 02:50 PM 6Fr AR 1 Runway guide catheter was used to cannulate the PCI vessel successfully. reused? No scoates 02:51 PM Time: 14:51 Aggrastat Bolus: 58 ml Intravenous Given by Piper Virk RN Thomson pump scoates 02:51 PM Time: 14:51 Aggrastat 12.5mg/250ml 21 ml Intravenous Given by Piper Virk RN Thomson pump scoates 02:53 PM .014 [place] 190cm guide wire across target lesion- successful. reused? No scoates 02:53 PM HR=66 bpm, IAHY=693/68 mmhg, SpO2=96.0 %, Resp=15 B/min, Comment=NSR 02:54 PM Time: 14:54 Nitroglycerin 200 mcg Intracoronary Given by Bryson Bernard MD scoates 02:54 PM 2.5 mm x 20 mm Emerge Monorail balloon across target lesion- successful. reused? No scoates 02:55 PM act drawn scoates 02:55 PM Time: 14:40 Patient comfortable and pain free: Yes scoates 02:56 PM Time: 14:40LOC: 4 = Oriented but drowsy scoates 02:56 PM Balloon inflated @ 8 anthony for 17 seconds scoates 02:57 PM Balloon inflated @ 12 anthony for 22 seconds scoates 02:58 PM HR=68 bpm, XVTX=988/64 mmhg, SpO2=95.0 %, Resp=17 B/min, Comment=NSR 02:58 PM At 14:58 the ACT was 201 seconds. scoates 02:59 PM Time: 14:59 Heparin 2000 units Intravenous Given by uKmar Gomez RN scoates 03:00 PM Balloon catheter removed intact. scoates 03:01 PM 2.75mm x 38mm Synergy drug-eluting stent across target lesion- successful Lot #[id number] scoates 03:03 PM Stent deployed @ 18 anthony for 26 seconds scoates 03:03 PM HR=68 bpm, CXSE=818/71 mmhg, SpO2=95.0 %, Resp=14 B/min, Comment=NSR 03:04 PM Stent delivery system removed intact. scoates 03:05 PM 3.5mm x 20mm Synergy drug-eluting stent across target lesion- successful Lot #[id number] scoates 03:08 PM HR=66 bpm, JEXE=993/70 mmhg, SpO2=97.0 %, Resp=14 B/min, Comment=NSR 03:09 PM Stent deployed @ 16 anthony for 30 seconds scoates 03:10 PM Stent delivery system removed intact. scoates 03:11 PM Time: 14:56LOC: 4 = Oriented but drowsy scoates 03:11 PM Time: 14:55 Patient comfortable and pain free: Yes scoates 03:11 PM 3.75 mm x 12mm NC Trek Rx balloon across target lesion- successful. reused? No scoates 03:12 PM Balloon inflated @ 12 anthony for 17 seconds scoates 03:13 PM HR=66 bpm, JZGM=598/74 mmhg, SpO2=96.0 %, Resp=12 B/min, Comment=NSR 03:13 PM Balloon inflated @ 20 anthony for 31 seconds scoates 03:14 PM Balloon inflated @ 20 anthony for 12 seconds scoates 03:14 PM Balloon catheter removed intact. scoates 03:15 PM 3.5 mm x 20mm NC Trek Rx balloon across target lesion- successful. reused? No scoates 03:16 PM Recorded Pressure: Ao, HR=69, Condition=Condition 1 (Aorta) Ao 137/72/97 03:17 PM Balloon inflated @ 14 anthony for 15 seconds scoates 03:18 PM Balloon inflated @ 16 anthony for 12 seconds scoates 03:18 PM HR=66 bpm, HVCA=829/78 mmhg, SpO2=97.0 %, Resp=13 B/min, Comment=NSR 03:19 PM Balloon inflated @ 18 anthony for 14 seconds scoates 03:19 PM Time: 15:19 Nitroglycerin 150 mcg Intracoronary Given by Bryson Bernard MD scoates 03:19 PM Time: 15:19 Fentanyl 50 mcg Intravenous Given by Kumar Gomez RN scoates 03:19 PM Balloon catheter removed intact. scoates 03:22 PM Guide wire removed intact. scoates 03:22 PM Guide catheter removed intact. scoates 03:23 PM Arterial sheath pulled, Vasc Band closure device used and was Successful S/N. scoates 03:23 PM 10 ml air in Vasc Band. scoates 03:23 PM HR=67 bpm, SLPD=061/67 mmhg, SpO2=96.0 %, Resp=13 B/min, Comment=NSR 03:24 PM Sign out completed: Radiation Dose 909.44 mGy Fluoro Time: 9.8 Isovue 370 - 200ml contrast 104.2 ml given by Bryson Bernard MD, FACC. Complications: NoneCardiac Rehab Consult needed: YesConfirmed administered medications: Yes scoates 03:24 PM Isovue 370 - 200ml,1 Bottle(s) used. scoates 03:24 PM Post ECG NSR scoates 03:24 PM Post Blood Pressure 151/67 scoates 03:24 PM Information taught Cardiac Cath, PCI, and Vasc Band scoates 03:24 PM Education needs Procedure, Plan of Care, and Disease Process scoates 03:24 PM Learning barriers :Sedated scoates 03:24 PM Education Methods Verbal scoates 03:24 PM Education evaluation Needs further instruction scoates 03:25 PM Site status No bleeding/hematoma - Rt Wrist as reported by Keely Weiss RT (R) at 15:25 scoates 03:25 PM Delay to floor No scoates 03:25 PM Family placed in consult room. scoates 03:25 PM Fluoro Time: 9.8 scoates 03:25 PM Isovue 370 - 200ml contrast 104.2 ml given by Bryson Bernard MD, FACC. scoates 03:25 PM Radiation Dose 909.44 mGy scoates 03:26 PM Time: 15:11 Patient comfortable and pain free: Yes scoates 03:26 PM Time: 15:11LOC: 5 = Fully awake and oriented or at pre-proc level scoates 03:27 PM Time: 15:26 Brilinta 90 mg Orally Given by Piper Virk RN scoates 03:28 PM 15:28 Post Pulses Rt Radial 2+ scoates 03:31 PM Report given to timothy MERINO Pt taken to E Room #30. 15:30 scoates 03:35 PM Patient out of room: 15:35 scoates 03:24 PM [facility] Equipment Used Size Length Diameter Item Category ACT Other Angio tray pack Other Terumo Glidesheath sheath Navilyst 3mmJ wire [place]in[place]rodt Wholey Hi-Torque wire 3DRC catheter AR 1 catheter Inflation kit Other Runway Guide catheter Thomson pump Other BMW Guidewire Emerge PTCA Dilatation Catheter Monorail Balloon Promus Element Plus Rx Drug Eluting Stent Promus Element Plus Rx Drug Eluting Stent NC Trek Rx Balloon NC Trek Rx Balloon Vasc Band Manual Compression Manual compression Isovue 370- 200ml Contrast Complications Complication None Hemodynamics Pressures Site Systolic/A Wave Diastolic/V Wave Mean LV 89 25 21 LV 68 17 64 AO 104 34 68 AO 113 79 94 AO 119 79 97 AO 137 72 97 Post Procedure Information Blood Pressure: 151/67 mmHg Rhythm: NSR Post procedural instructions were given Site Checks Time Location Status Staff Sheath In? Note 03:25 PM Rt Wrist No bleeding/hematoma Keely Weiss RT (R) Pulses Time Site Pre-Procedure Post-Procedure Note 12/17/2016 2:17:00 PM Bilateral radial 2+ 12/17/2016 2:17:00 PM Bilateral DP & PT 2+ 3:28:00 PM Rt Radial 2+ Updated by Roseline Parada RT (R) on 12/21/2016 2:13:28 PM Roseline Parada RT electronically signed on 12/21/2016 2:13:58 PM with status of Final
== END 2016-12-18 16:00 | disposition home or self-care (01) | DRG 247 ==
LOC: EMEROO 01:17 → 2ANU 01:17 → SUATTDRO 04:20 → 2ANU 04:35 → 2NENU 12-17 16:04
PROVIDERS: ADMIT Internal Medicine; ATTEND Internal Medicine